=== PATIENT | male | born 1930 | race Caucasian/White ===

== ENCOUNTER 2016-11-15 12:42 | Inpatient (IN) | payer MEDICARE, OTHER ==
[~2016-11-15] VITALS: Ht 177.8 cm; Wt 84.7 kg
--- NOTE | 2016-11-15 12:53 | ERA ---
ER Documentation Chief Complaint Date/Time DATE: 11/15/16 TIME: 12:52 Chief Complaint sob started today HPI The patient is an 86-year-old male, presenting to the ER because of acute dyspnea, cough, nasal congestion, nasal discharge for the last couple days, worse today. He denies fever, chills, neck pain, chest pain, abdominal pain, vomiting, dysuria, diarrhea. He does not smoke or drink Past medical history: Diabetes mellitus, hypertension, dyslipidemia, CAD Past surgical history: CABG, ventral herniorrhaphy ROS All systems reviewed and are negative except as per history of present illness. Medications Home Meds Reported Medications Tiotropium [place]* (Spiriva*) 18 Mcg Cap.w.dev, 1 CAP INHALATION DAILY, #30 CAP 11/15/16 Atorvastatin* (Atorvastatin*) 80 Mg Tablet, 80 MG PO QHS, #30 TAB 11/15/16 Salmeterol Xinaf/Fluticasone* (Advair*) 250-50 Diskus Inhaler, 1 INH INHALATION BID, #1 INHALER 11/15/16 Montelukast Sodium* (Montelukast Sodium*) 10 Mg Tablet, 10 MG PO QHS, #30 TAB 11/15/16 Clopidogrel Bisulfate (Clopidogrel) 75 Mg Tablet, 75 MG PO DAILY, #30 TAB 11/15/16 Albuterol Sulfate* (Proair HFA*) 8.5 Gm Hfa.aer.ad, 2 PUFF INH Q4H Y for WHEEZING AND SOB, #1 INHALER 11/15/16 Clopidogrel Bisulfate (Clopidogrel) 75 Mg Tablet, 75 MG PO DAILY, #30 TAB 11/15/16 Carvedilol* (Carvedilol*) 3.125 Mg Tablet, 3.125 MG PO BID, #60 TAB 11/15/16 Tamsulosin Hcl* (Tamsulosin Hcl*) 0.4 Mg Cap.er.24h, 0.4 MG PO HS, CAP 11/15/16 Pantoprazole* (Pantoprazole*) 40 Mg Tablet.dr, 40 MG PO AC BREAKFAST, TAB 11/15/16 Losartan Potassium* (Losartan Potassium*) 50 Mg Tablet, 50 MG PO DAILY, TAB 11/15/16 Hydrochlorothiazide* (Hydrochlorothiazide*) 25 Mg Tab, 25 MG PO DAILY, #30 TAB 11/15/16 Allergies Allergies: Coded Allergies: aspirin (Verified Allergy, Severe, STOMACH ULCER, 11/15/16) Physical Exam Vitals Vital Signs Date Time Temp Pulse Resp B/P Pulse Ox O2 Delivery O2 Flow Rate FiO2 11/15/16 18:21 78 20 121/62 98 11/15/16 17:00 98.5 83 18 142/85 Mask 6.0 11/15/16 15:00 90 18 143/97 Mask 6.0 11/15/16 13:42 75 18 96 21 11/15/16 12:47 98.1 88 20 125/73 94 Physical Exam Const: No acute distress. Head: Atraumatic. Eyes: Normal Conjunctiva. ENT: Normal External Ears, Nose and Mouth. Neck: Full range of motion. No meningismus. Resp: Bilateral expiratory wheezes, bibasilar crackles Cardio: Regular rate and rhythm, no murmurs. Abd: Soft, non distended, normal bowel sounds, non tender. Skin: No petechiae or rashes. Back: No midline or flank tenderness. Ext: No cyanosis, or edema. Neur: Awake and alert. No focal deficit Psych: Normal Mood and Affect. Result Diagram: 11/15/16 1330 11/15/16 1330 Results 24 hrs Laboratory Tests Test 11/15/16 13:30 11/15/16 14:30 Activated Partial Thromboplast Time 32.8Sec Alanine Aminotransferase (ALT/SGPT) 29IU/L Albumin 3.3g/dl Albumin/Globulin Ratio 0.82 Alkaline Phosphatase 97IU/L Anion Gap 14 Aspartate Amino Transf (AST/SGOT) 23IU/L B-Type Natriuretic Peptide 4830PG/ML Basophils # 0.010^3/ul Basophils % 0.2% Blood Urea Nitrogen 22mg/dl Calcium Level 9.1mg/dl Carbon Dioxide Level 32mmol/L Chloride Level 103mmol/L Creatinine 1.08mg/dl Direct Bilirubin 0.00mg/dl Eosinophils # 0.110^3/ul Eosinophils % 0.4% Globulin 4.00g/dl Glucose Level 122mg/dl Hematocrit 40.5% Hemoglobin 12.2g/dl INR International Normalized Ratio 1.12 Indirect Bilirubin 0.8mg/dl Lymphocytes # 1.210^3/ul Lymphocytes % 8.3% Mean Corpuscular Hemoglobin 30.3pg Mean Corpuscular Hemoglobin Concent 30.1g/dl Mean Corpuscular Volume 100.5fl Mean Platelet Volume 10.8fl Monocytes # 1.410^3/ul Monocytes % 9.3% Neutrophils # 11.910^3/ul Neutrophils % 81.3% Nucleated Red Blood Cells # 0.010^3/ul Nucleated Red Blood Cells % 0.0/100WBC Platelet Count 03235^3/UL Potassium Level 5.0mmol/L Prothrombin Time 14.4Sec Prothrombin Time Ratio 1.1 Red Blood Count 4.0310^6/ul Red Cell Distribution Width 14.0% Sodium Level 144mmol/L Total Bilirubin 0.8mg/dl Total Protein 7.3g/dl Troponin I 0.017ng/ml White Blood Count 14.610^3/ul Lactic Acid Level 0.9mmol/L Current Medications Medications (Trade) Dose Ordered Sig/Kiana Route PRN Reason Start Time Stop Time Status Last Admin Dose Admin Levalbuterol (Xopenex Neb) 1.25 mg ONCE ONCE HHN 11/15/16 13:30 11/15/16 13:31 DC 11/15/16 13:41 Ipratropium [place] 0.5 mg 0.5 mg ONCE ONCE HHN 11/15/16 13:30 11/15/16 13:31 DC 11/15/16 13:41 Vancomycin HCl 250 ml @ 125 mls/hr ONCE IVPB 11/15/16 14:30 11/15/16 16:29 DC 11/15/16 16:15 Cefepime HCl (Maxipime 1gm/50 ml (Pmx)) 50 ml @ 100 mls/hr ONCE ONCE IVPB 11/15/16 14:30 11/15/16 14:59 DC 11/15/16 15:49 Furosemide (Lasix) 40 mg ONCE ONCE IV 11/15/16 15:00 11/15/16 15:01 DC 11/15/16 15:48 Procedures/MDM EKG: Read by emergency physician Rate/Rhythm: Normal Sinus Rhythm 79 beats/min QRS, ST, T-waves: No ST elevation, no T inversion, PAC, LVH, lateral ST and T abnormality Impression: Abnormal EKG [place] [id number] Radiology Main Line: [phone] DIAGNOSTIC IMAGING REPORT Patient: BEN HOWARD : 1930 Age: 86 Sex: M MR #: [id number] DOS: 11/15/16 1304 Ordering MD: HARESH NAQVI MD Location: E/R Room/Bed: PROCEDURE: CHEST 1VW CLINICAL INDICATION: Shortness of breath TECHNIQUE: Single frontal view of the chest was obtained COMPARISON: None. FINDINGS: Stable sternotomy wires and CABG clips. The cardiac size is moderately enlarged. Aortic vascular calcifications are demonstrated. There is no pulmonary vascular congestion. Minimal bronchial wall thickening is seen. There is a right lower lobe opacity. Mild degenerative changes of the visualized osseous structures are visualized. IMPRESSION: 1. Right lower lobe opacity may suggest pneumonia or aspiration. Minimal bronchial wall thickening may be sequela of bronchitis, asthma, or other nonspecific airway inflammation. 2. Atherosclerosis with moderate cardiomegaly. RPTAT:PP .Brendan Sims MD, MD Date Time Electronically viewed and signed by .Brendan Sims MD, MD on 11/15/2016 13:53 .V/ CC: HARESH NAQVI MD MEDICAL MAKING DECISION: The patient is a 86-year-old male, presenting with acute CHF, acute pneumonia. He was treated with Lasix 40 mg IV for acute CHF, Xopenex 125 mg, Atrovent 0.5, vancomycin IV, cefepime IV for acute pneumonia with good response. The differential diagnoses considered include but are not limited to asthma, COPD, pneumonia, pulmonary embolus, pleural effusion, congestive heart failure. Departure Diagnosis: Primary Impression: CHF (congestive heart failure) Additional Impressions: Pneumonia Anemia Condition: Stable Comments I discussed the findings with the patient. I discussed the patient with the on- call hospitalist Dr. Mac who was made aware of the lab, the treatment, the patient condition. The patient is admitted to telemetry at 2:45pm HARESH NAQVI MD Nov 15, 2016 12:53
[2016-11-15] MEDS ORDERED: LEVALBUTEROL (NEB) 1.25 MG/0.5 ML AMP HHN ONE (13:30)
[2016-11-15] MEDS ORDERED: IPRATROPIUM (NEB) 0.5 MG/2.5 ML AMP HHN ONE (13:30)
[2016-11-15 13:40] LABS: ADD SCAN DIFF NO
[2016-11-15 13:43] LABS: BASOPHILS % 0.2 % (0.0-2.0); EOSINOPHILS # 0.1 10^3/ul (0.0-0.5); EOSINOPHILS % 0.4 % (0.0-7.0); HEMATOCRIT 40.5 % (42.0-52.0); HEMOGLOBIN 12.2 g/dl (14.0-18.0); LYMPHOCYTES # 1.2 10^3/ul (0.8-2.9); LYMPHOCYTES % 8.3 % (15.0-51.0); MEAN CORPUSCULAR HEMOGLOBIN 30.3 pg (29.0-33.0); MEAN CORPUSCULAR HGB CONC 30.1 g/dl (32.0-37.0); MEAN CORPUSCULAR VOLUME 100.5 fl (82.0-101.0); MEAN PLATELET VOLUME 10.8 fl (7.4-10.4); MONOCYTE # 1.4 10^3/ul (0.3-0.9); MONOCYTES % 9.3 % (0.0-11.0); NEUTROPHIL # 11.9 10^3/ul (1.6-7.5); NEUTROPHILS % 81.3 % (39.0-77.0); PLATELET COUNT 195 10^3/UL (140-415); RED BLOOD COUNT 4.03 10^6/ul (4.70-6.10); WHITE BLOOD COUNT 14.6 10^3/ul (4.8-10.8)
--- NOTE | 2016-11-15 13:54 | RADRPT ---
PROCEDURE: CHEST 1VW CLINICAL INDICATION: Shortness of breath TECHNIQUE: Single frontal view of the chest was obtained COMPARISON: None. FINDINGS: Stable sternotomy wires and CABG clips. The cardiac size is moderately enlarged. Aortic vascular calcifications are demonstrated. There is no pulmonary vascular congestion. Minimal bronchial wall thickening is seen. There is a right lower lobe opacity. Mild degenerative changes of the visualized osseous structures are visualized. IMPRESSION: 1. Right lower lobe opacity may suggest pneumonia or aspiration. Minimal bronchial wall thickening m ay be sequela of bronchitis, asthma, or other nonspecific airway inflammation. 2. Atherosclerosis with moderate cardiomegaly. RPTAT:PP .Brendan Sims MD, MD Date Time Electronically viewed and signed by .Brendan Sims MD, on 11/15/2016 13:53 .V/
[2016-11-15 13:55] LABS: INR 1.12; PROTIME 14.4 Sec (12.2-14.2); PT RATIO 1.1
[2016-11-15 13:56] LABS: PARTIAL THROMBOPLASTIN TIME 32.8 Sec (25.0-35.0)
[2016-11-15 13:57] LABS: ALBUMIN 3.3 g/dl (3.3-4.9)
[2016-11-15 14:00] LABS: ALBUMIN/GLOBULIN RATIO 0.82; BILIRUBIN,INDIRECT 0.8 mg/dl (0-1.1); BILIRUBIN,TOTAL 0.8 mg/dl (0.2-1.3); CREATININE 1.08 mg/dl (0.61-1.24); TOTAL PROTEIN 7.3 g/dl (6.1-8.1)
[2016-11-15 14:01] LABS: CALCIUM 9.1 mg/dl (8.4-10.2)
[2016-11-15] MEDS ORDERED: PANT40TA4 PO (14:12)
[2016-11-15] MEDS ORDERED: HYD25 PO (14:12)
[2016-11-15] MEDS ORDERED: LOSA50TA6 PO (14:12)
[2016-11-15] MEDS ORDERED: TAMS0.4C2 PO (14:13)
[2016-11-15] MEDS ORDERED: CLOP75TA27 PO ×2 (14:13→14:14)
[2016-11-15] MEDS ORDERED: CARV3.1260 PO (14:13)
[2016-11-15] MEDS ORDERED: MONT10TA24 PO (14:14)
[2016-11-15] MEDS ORDERED: ALBU8.5H3 INH (14:14)
[2016-11-15] MEDS ORDERED: ADV25050 INHALATION (14:15)
[2016-11-15 14:16] LABS: TROPONIN-I 0.017 ng/ml (0.00-0.12)
[2016-11-15] MEDS ORDERED: TIOT18CA INHALATION (14:16)
[2016-11-15] MEDS ORDERED: ATOR80TA75 PO (14:16)
[2016-11-15] MEDS ORDERED: CEFEPIME 1GM/50 ML (PMX) 50 ML IVPB ONE (14:30)
[2016-11-15] MEDS ORDERED: VANCOMYCIN 1 GM (PMX) 250 ML IVPB SCH (14:30)
[2016-11-15] MEDS ORDERED: FUROSEMIDE 40 MG INJ IV ONE (15:00)
[2016-11-15 17:00] VITALS: TEMP 98.5
[2016-11-15 20:08] VITALS: BP 144/82; RESP 21
[2016-11-15 20:37] VITALS: PULSE 90
[2016-11-15 20:55] VITALS: Ht 177.8 cm; Wt 84.7 kg
[2016-11-15] MEDS ORDERED: ALBUTEROL/IPRATROPIUM (NEB) 3 ML AMP HHN PRN (21:30)
[2016-11-15] MEDS ORDERED: ACETAMINOPHEN 325 MG TAB PO PRN (21:30)
[2016-11-15] MEDS ORDERED: GUAIFENESIN/CODEINE 5ML CUP PO ONE (21:36)
[2016-11-15] MEDS ORDERED: ALBUTEROL/IPRATROPIUM (NEB) 3 ML AMP HHN ONE (21:37)
[2016-11-15] MEDS: SALMETEROL/FLUTICASONE 250/50 INHA INH SCH (22:19)
[2016-11-15] MEDS: TAMSULOSIN (SR) 0.4 MG CAP PO SCH (22:19)
[2016-11-15] MEDS: ATORVASTATIN 80 MG TAB PO SCH (22:20)
[2016-11-15] MEDS: MONTELUKAST 10 MG TAB PO SCH (22:20)
[2016-11-16] VITALS (12 sets, daily range): BP systolic 114–150; BP diastolic 55–79; PULSE 78–89; RESP 18–22
[2016-11-16] MEDS: PANTOPRAZOLE (EC) 40 MG TAB PO SCH (06:38)
[2016-11-16] MEDS ORDERED: METHYLPREDNISOLONE 125 MG INJ IV ONE (07:00)
--- NOTE | 2016-11-16 08:13 | HP ---
DATE OF ADMISSION: 11/15/2016 CHIEF COMPLAINT: Shortness of breath and cough. HISTORY OF PRESENT ILLNESS: The patient is an 86-year-old male with a history of diabetes, hyperten margarita, dyslipidemia, coronary artery disease, asthma, BPH, asthma/COPD, and atrial fibrillation, who was brought to [facility] for shortness of breath and cough. The symptoms have be en going on for a few days now, and his cough is described as productive of white sputum. He also r eported a runny nose and nasal congestion. The symptoms acutely worsened today. Denied any fever, chills, nausea, vomiting, abdominal pain. When he presented to the ER his vitals were stable. LABORATORY: Laboratory values show a WBC of 14.6, hemoglobin 12.2, bicarbonate 32, BUN 22. Otherwi se CBC and CMP are within normal limits. BNP is almost 5000. His first troponin was negative. Chest x-ray shows a right lower lobe opacity suggestive of pneumonia or aspiration. Also, minimal b ronchial wall thickening, sequela of bronchitis, asthma, or other nonspecific airway inflammation wa s noted on the chest x-ray along with moderate cardiomegaly. Patient received breathing treatments as well as was given vancomycin, cefepime, and Lasix while he was in the ER. was performed and negative except as mentioned in the HPI. PAST MEDICAL HISTORY: As per HPI. PAST SURGICAL HISTORY: He had an open heart surgery. SOCIAL HISTORY: No reported tobacco, alcohol, or illicit drug use. ALLERGIES: 1. ASPIRIN. 2. PENICILLIN. HOME MEDICATIONS: 1. Albuterol. 2. Tamsulosin. 3. Spiriva. 4. Plavix. 5. Lipitor. 6. Coreg. 7. Losartan. 8. Hydrochlorothiazide. 9. Montelukast. 10. Advair. 11. Protonix. PHYSICAL EXAMINATION VITAL SIGNS: Stable. GENERAL: Elderly male lying in bed with no acute distress. No acute distress. Slightly sleepy, bu t was arousable. HEENT: No obvious head deformity. Pupils are reactive to light. CARDIOVASCULAR: Regular rate and rhythm. No extra sounds. LUNGS: He has decreased breath sounds at the bases with minimal scattered wheezing. ABDOMEN: Soft, nontender, nondistended. Positive bowel sounds. EXTREMITIES: No edema. LABORATORY: Pertinent positives as mentioned in HPI. IMAGING: Chest x-ray with results as mentioned in the HPI. IMPRESSION: 1. Right lower lobe community-acquired pneumonia. 2. Chronic obstructive pulmonary disease/asthma exacerbation. 3. Leukocytosis. 4. Sepsis, as evidenced by leukocytosis and tachypnea, secondary to pneumonia. 6. History of coronary artery disease. 7. History of diabetes. 8. History of dyslipidemia. 9. History of hypertension, blood pressure within goal. 10. History of atrial fibrillation. PLAN: The patient's symptom of shortness of breath and productive cough along with his chest x-ray finding is diagnostic of pneumonia. He will be placed on antibiotics. We will follow up on culture results. We will attempt to send sputum for Gram stain and culture. He will be continued with his home medication, with adjustment as needed. He will receive bronchodilators and oxygen as needed. He will also receive steroids as needed for exacerbation of her reactive airway disease. Further workup and management per clinical course. Dictated By: EDILIA MÉNDEZ/OSKAR Conf#: [id number] DID#: [id number]
[2016-11-16] MEDS: SALMETEROL/FLUTICASONE 250/50 INHA INH SCH ×2 (08:17→20:51)
[2016-11-16] MEDS: LEVOFLOXACIN 500MG/D5W (PMX) 100 ML IVPB SCH (08:17)
[2016-11-16] MEDS: TIOTROPIUM 18 MCG CAPSULE INHA DEV INH SCH (08:18)
[2016-11-16] MEDS: HYDROCHLOROTHIAZIDE 25 MG TAB PO SCH (08:19)
[2016-11-16] MEDS: LOSARTAN 50 MG TAB PO SCH (08:19)
[2016-11-16] MEDS: CLOPIDOGREL 75 MG TAB PO SCH (08:19)
[2016-11-16 09:28] LABS: ADD SCAN DIFF NO
[2016-11-16 09:39] LABS: ALBUMIN 3.3 g/dl (3.3-4.9)
[2016-11-16 09:41] LABS: BASOPHILS % 0.2 % (0.0-2.0); CREATININE 1.06 mg/dl (0.61-1.24); EOSINOPHILS # 0.1 10^3/ul (0.0-0.5); EOSINOPHILS % 0.5 % (0.0-7.0); HEMATOCRIT 37.7 % (42.0-52.0); HEMOGLOBIN 11.5 g/dl (14.0-18.0); LYMPHOCYTES # 1.1 10^3/ul (0.8-2.9); LYMPHOCYTES % 8.1 % (15.0-51.0); MEAN CORPUSCULAR HEMOGLOBIN 30.4 pg (29.0-33.0); MEAN CORPUSCULAR HGB CONC 30.5 g/dl (32.0-37.0); MEAN CORPUSCULAR VOLUME 99.7 fl (82.0-101.0); MEAN PLATELET VOLUME 11.2 fl (7.4-10.4); MONOCYTE # 1.1 10^3/ul (0.3-0.9); MONOCYTES % 7.7 % (0.0-11.0); NEUTROPHIL # 11.4 10^3/ul (1.6-7.5); NEUTROPHILS % 83.1 % (39.0-77.0); PLATELET COUNT 168 10^3/UL (140-415); RED BLOOD COUNT 3.78 10^6/ul (4.70-6.10); WHITE BLOOD COUNT 13.7 10^3/ul (4.8-10.8)
[2016-11-16 09:42] LABS: ALBUMIN/GLOBULIN RATIO 0.91; BILIRUBIN,INDIRECT 0.8 mg/dl (0-1.1); BILIRUBIN,TOTAL 0.8 mg/dl (0.2-1.3); CALCIUM 8.5 mg/dl (8.4-10.2); TOTAL PROTEIN 6.9 g/dl (6.1-8.1)
[2016-11-16 09:43] LABS: CHOL/HDL RATIO 2.5 RATIO
[2016-11-16] MEDS ORDERED: VANCOMYCIN IV PER PHARMACY XX SCH (10:30)
[2016-11-16] MEDS ORDERED: FUROSEMIDE 20 MG INJ IV ONE (10:30)
--- NOTE | 2016-11-16 10:34 | PN ---
Date/Time of Note Date/Time of Note DATE: 11/16/16 TIME: 10:29 Assessment/Plan VTE Prophylaxis VTE Prophylaxis Intervention: LMWH Lines/Catheters IV [facility] [place] Assessment/Plan Assessment/Plan 1. Right lower lobe community-acquired pneumonia. 2. Chronic obstructive pulmonary disease/asthma exacerbation. 3. Leukocytosis. 4. Sepsis,as evidenced by leukocytosis and tachypnea, secondary to pneumonia. possible due to bacteremia 6. History of coronary artery disease. 7. History of diabetes. 8. History of dyslipidemia. 9. History of hypertension, blood pressure within goal. 10. History of atrial fibrillation. 11. Bacteremia with blood cx growing gram postive cocci in chains and clusters Plan: IV abx levaquin, blood cx grew gram positive cocci in clusters and chains, will add IV vancomycin repeat blood cx , UA Urine cx WBC still high, pt has signficant crackles on lung exam, will give lasix 20mg IV x 1 now, DUoneb ATC, Physical therapy and evaluation lovenox for DVT prophylaxis will follow up Subjective 24 Hr Interval Summary Free Text/Dictation c/o SOB, crackles on lung exam, blood cx grew gram positive coccil in clusters and chains Exam/Review of Systems Vital Signs Vitals Vital Signs Date Time Temp Pulse Resp B/P Pulse Ox O2 Delivery O2 Flow Rate FiO2 11/16/16 10:12 Nasal Cannula 2.0 11/16/16 08:12 78 11/16/16 06:58 98.2 18 150/65 98 11/15/16 21:55 21 Intake and Output 11/15/16 11/15/16 11/16/16 15:00 23:00 07:00 Intake Total 300 ml Output Total 550 ml 1400 ml Balance -550 ml -1400 ml 300 ml Exam GENERAL: Elderly male lying in bed with no acute distress. No acute distress. Slightly sleepy, but was arousable. HEENT: No obvious head deformity. Pupils are reactive to light. CARDIOVASCULAR: Regular rate and rhythm. No extra sounds. LUNGS: He has decreased breath sounds at the bases with minimal scattered wheezing. ABDOMEN: Soft, nontender, nondistended. Positive bowel sounds. EXTREMITIES: No edema. Results Result Diagram: 11/16/16 0855 11/16/16 0855 Results 24 hrs Laboratory Tests Test 11/15/16 13:30 11/15/16 14:30 11/15/16 20:35 11/15/16 22:45 Activated Partial Thromboplast Time 32.8 Alanine Aminotransferase (ALT/SGPT) 29 Albumin 3.3 Albumin/Globulin Ratio 0.82 Alkaline Phosphatase 97 Anion Gap 14 Aspartate Amino Transf (AST/SGOT) 23 B-Type Natriuretic Peptide 4830 H Basophils # 0.0 Basophils % 0.2 Blood Urea Nitrogen 22 H Calcium Level 9.1 Carbon Dioxide Level 32 H Chloride Level 103 Creatinine 1.08 Direct Bilirubin 0.00 Eosinophils # 0.1 Eosinophils % 0.4 Globulin 4.00 H Glucose Level 122 Hematocrit 40.5 L Hemoglobin 12.2 L INR International Normalized Ratio 1.12 Indirect Bilirubin 0.8 Lymphocytes # 1.2 Lymphocytes % 8.3 L Mean Corpuscular Hemoglobin 30.3 Mean Corpuscular Hemoglobin Concent 30.1 L Mean Corpuscular Volume 100.5 Mean Platelet Volume 10.8 H Monocytes # 1.4 H Monocytes % 9.3 Neutrophils # 11.9 H Neutrophils % 81.3 H Nucleated Red Blood Cells # 0.0 Nucleated Red Blood Cells % 0.0 Platelet Count 195 Potassium Level 5.0 Prothrombin Time 14.4 H Prothrombin Time Ratio 1.1 Red Blood Count 4.03 L Red Cell Distribution Width 14.0 Sodium Level 144 Total Bilirubin 0.8 Total Protein 7.3 Troponin I 0.017 White Blood Count 14.6 H Lactic Acid Level 0.9 1.6 1.9 Test 11/16/16 08:55 Alanine Aminotransferase (ALT/SGPT) 28 Albumin 3.3 Albumin/Globulin Ratio 0.91 Alkaline Phosphatase 97 Anion Gap 13 Aspartate Amino Transf (AST/SGOT) 20 Basophils # 0.0 Basophils % 0.2 Blood Urea Nitrogen 23 H Calcium Level 8.5 Carbon Dioxide Level 33 H Chloride Level 99 Cholesterol Level 104 Cholesterol/HDL Ratio 2.5 Creatinine 1.06 Direct Bilirubin 0.00 Eosinophils # 0.1 Eosinophils % 0.5 Globulin 3.60 H Glucose Level 194 HDL Cholesterol 41 Hematocrit 37.7 L Hemoglobin 11.5 L Hemoglobin A1c 6.9 H Indirect Bilirubin 0.8 LDL Cholesterol, Calculated 48 Lymphocytes # 1.1 Lymphocytes % 8.1 L Mean Corpuscular Hemoglobin 30.4 Mean Corpuscular Hemoglobin Concent 30.5 L Mean Corpuscular Volume 99.7 Mean Platelet Volume 11.2 H Monocytes # 1.1 H Monocytes % 7.7 Neutrophils # 11.4 H Neutrophils % 83.1 H Nucleated Red Blood Cells # 0.0 Nucleated Red Blood Cells % 0.0 Platelet Count 168 Potassium Level 4.0 Red Blood Count 3.78 L Red Cell Distribution Width 14.0 Sodium Level 141 Total Bilirubin 0.8 Total Protein 6.9 Triglycerides Level 76 White Blood Count 13.7 H Medications Medications Current Medications Atorvastatin Calcium (Lipitor) 80 mg QHS PO Last administered on 11/15/16 22: 20; Admin Dose 80 MG; Start 11/15/16 at 22:00 Carvedilol (Coreg) 3.125 mg BID PO Last administered on 11/16/16 08:19; Admin Dose 3.125 MG; Start 11/15/16 at 22:00 Clopidogrel Bisulfate (plaVIX) 75 mg DAILY PO Last administered on 11/16/16 08: 19; Admin Dose 75 MG; Start 11/16/16 at 09:00 Hydrochlorothiazide (Hydrochlorothiazide) 25 mg DAILY PO Last administered on 08:19; Admin Dose 25 MG; Start 11/16/16 at 09:00 Losartan Potassium (Cozaar) 50 mg DAILY PO Last administered on 11/16/16 08:19 ; Admin Dose 50 MG; Start 11/16/16 at 09:00 Montelukast Sodium (Singulair) 10 mg QHS PO Last administered on 11/15/16 22: 20; Admin Dose 10 MG; Start 11/15/16 at 22:00 Salmeterol Xinafoate/ Fluticasone (Advair 250/50 Diskus) 1 inh BID INH Last administered on 11/16/16 08:17; Admin Dose 1 INH; Start 11/15/16 at 22:30 Tamsulosin HCl (Flomax) 0.4 mg HS PO Last administered on 11/15/16 22:19; Admin Dose 0.4 MG; Start 11/15/16 at 22:00 Tiotropium [place] (Spiriva) 1 inh DAILY INH Last administered on 11/16/16 08: 18; Admin Dose 1 INH; Start 11/16/16 at 09:00 Acetaminophen 650 mg 650 mg Q6H PRN PO PAIN AND OR ELEVATED TEMP; Start at 21:30 Levofloxacin/ Dextrose (Levaquin 500mg/ D5W 100 ml (Pmx)) 100 ml @ 100 mls/hr Q24H IVPB Last administered on 11/16/16t 08:17; Admin Dose 100 MLS/HR; Start 11/16/16 at 07:00 CRUZ ABRAHAM MD Nov 16, 2016 10:34
[2016-11-16] MEDS: METHYLPREDNISOLONE 40 MG INJ IV SCH ×2 (11:16→20:51)
[2016-11-16] MEDS: ENOXAPARIN 40 MG/0.4 ML SYG SC SCH (11:24)
--- NOTE | 2016-11-16 11:31 | RADRPT ---
Echocardiogram Report Patient Name: BEN HOWARD Gender: Male Date: 1930 Study Date: 16-Nov-2016 Sheet Metal Operator: Gregory Rocha [facility] [place] [facility] Physician: EDILIA WILKINSON Quality: Technically Difficult Study Procedures: Transthoracic echocardiogram with complete 2D, M-Mode, and doppler examination. Indications: Congestive Heart Failure. 2D/M Mode Doppler Measurement Value Normal Ranges Measurement Value Normal Ranges LVIDd 2D 5.7 3.5 - 5.6 cm AV Peak Mike 1.2 m/sec LVIDs 2D 4.0 2.1 - 4.1 cm AV Peak PG 5.9 mmHg LVPWd 2D 0.8 0.6 - 1.1 cm LVOT Peak Mike 0.9 m/sec IVSd 2D 1.2 0.6 - 1.1 cm LVOT Peak PG 2.9 mmHg AoR Diam 2D 3.8 2.0 - 3.7 cm MV E Peak Mike 0.5 m/sec EDV 2D 160.2 cm3 MV A Peak Mike 0.8 m/sec ESV 2D 62.7 cm3 MV E/A 0.7 LA Dimen 2D 5.0 2.3 - 4.0 cm MV Decel Time 189 msec MV Decel [place] 3 MV E/A 0.7 Findings Left Ventricle: Normal left ventricular cavity size. Mild asymmetric septal hypertrophy. Mild global left ventricular systolic dysfunction. Ejection fraction is visually estimated at 45 %. Tissue Doppler/Mitral Doppler indices are consistent with impaired relaxation (Stage I diastolic dysfunction). Right Ventricle: Normal right ventricular size. Normal right ventricular systolic function. Left Atrium: There is moderate enlargement of left atrium. Right Atrium: The right atrium is normal in size. Mitral Valve: Mitral valve leaflets appear mildly thickened. Mild mitral annular calcification. Mild mitral valve regurgitation. Aortic Valve: No hemodynamically significant aortic stenosis by doppler. Aortic cusps appear mildly calcified. Trace aortic valve regurgitation. Tricuspid Valve: Normal appearance and function of the tricuspid valve with trace physiologic regurgitation. Pulmonic Valve: Normal pulmonic valve appearance. Pericardium: Normal pericardium with no significant pericardial effusion. Aorta: Normal aortic root. IVC: Dilated IVC with respiratory collapse consistent with elevated right atrial pressure. Conclusions 1.Normal left ventricular cavity size. Mild asymmetric septal hypertrophy. Mild global left ventricular systolic dysfunction. Ejection fraction is visually estimated at 45 %. Tissue Doppler/Mitral Doppler indices are consistent with impaired relaxation (Stage I diastolic dysfunction). 2.Normal right ventricular size. Normal right ventricular systolic function. 3.There is moderate enlargement of left atrium. 4.The right atrium is normal in size. 5.Mild mitral valve regurgitation. 6.No hemodynamically significant aortic stenosis by doppler. Trace aortic valve regurgitation. 7.Normal pericardium with no significant pericardial effusion. Electronically Signed By: Jeevan Rosas 16-Nov-2016 11:30:43 -0800 Patient Name: BEN HOWARD Study Date: 16-Nov-[id number]
[2016-11-16 12:58] LABS: ADD UMIC YES; URINE BILIRUBIN (Dip) NEGATIVE (NEGATIVE); URINE BLOOD (Dip) NEGATIVE (NEGATIVE); URINE COLOR LT. YELLOW (YELLOW); URINE GLUCOSE (Dip) NEGATIVE (NEGATIVE); URINE KETONES (Dip) NEGATIVE (NEGATIVE); URINE LEUKOCYTE ESTERASE (Dip) NEGATIVE (NEGATIVE); URINE NITRITE (Dip) NEGATIVE (NEGATIVE); URINE TOTAL PROTEIN (Dip) TRACE (NEGATIVE); URINE UROBILINOGEN (Dip) 0.2 E.U./dL (0.1-1.0)
[2016-11-16] MEDS ORDERED: VANCOMYCIN 1.5 GM in SOD CHLORIDE 0.9% 250 ML IVPB SCH (13:00)
[2016-11-16 13:20] LABS: URINE RBCS 0-2 /HPF (0)
[2016-11-16] MEDS: ALBUTEROL/IPRATROPIUM (NEB) 3 ML AMP HHN SCH ×2 (16:04→23:13)
[2016-11-16] MEDS: ATORVASTATIN 80 MG TAB PO SCH (20:51)
[2016-11-16] MEDS: TAMSULOSIN (SR) 0.4 MG CAP PO SCH (20:51)
[2016-11-16] MEDS: MONTELUKAST 10 MG TAB PO SCH (20:51)
[2016-11-17] VITALS (14 sets, daily range): BP systolic 122–158; BP diastolic 72–80; PULSE 75–101; RESP 16–22
[2016-11-17] MEDS: PANTOPRAZOLE (EC) 40 MG TAB PO SCH (06:13)
[2016-11-17] MEDS: LEVOFLOXACIN 500MG/D5W (PMX) 100 ML IVPB SCH (06:13)
[2016-11-17] MEDS: METHYLPREDNISOLONE 40 MG INJ IV SCH ×2 (08:08→20:50)
[2016-11-17] MEDS: ENOXAPARIN 40 MG/0.4 ML SYG SC SCH (08:08)
[2016-11-17] MEDS: TIOTROPIUM 18 MCG CAPSULE INHA DEV INH SCH (08:08)
[2016-11-17] MEDS: CLOPIDOGREL 75 MG TAB PO SCH (08:08)
[2016-11-17] MEDS: LOSARTAN 50 MG TAB PO SCH (08:09)
[2016-11-17] MEDS: SALMETEROL/FLUTICASONE 250/50 INHA INH SCH ×2 (08:09→20:50)
[2016-11-17] MEDS: HYDROCHLOROTHIAZIDE 25 MG TAB PO SCH (08:09)
[2016-11-17 08:10] LABS: ADD SCAN DIFF NO
[2016-11-17 08:21] LABS: BASOPHILS % 0.1 % (0.0-2.0); HEMATOCRIT 42.3 % (42.0-52.0); HEMOGLOBIN 13.3 g/dl (14.0-18.0); LYMPHOCYTES % 8.6 % (15.0-51.0); MEAN CORPUSCULAR HEMOGLOBIN 30.8 pg (29.0-33.0); MEAN CORPUSCULAR HGB CONC 31.4 g/dl (32.0-37.0); MEAN CORPUSCULAR VOLUME 97.9 fl (82.0-101.0); MEAN PLATELET VOLUME 11.3 fl (7.4-10.4); MONOCYTE # 0.5 10^3/ul (0.3-0.9); MONOCYTES % 4.5 % (0.0-11.0); NEUTROPHIL # 9.7 10^3/ul (1.6-7.5); NEUTROPHILS % 86.4 % (39.0-77.0); PLATELET COUNT 203 10^3/UL (140-415); RED BLOOD COUNT 4.32 10^6/ul (4.70-6.10); RED CELL DISTRIBUTION WIDTH 13.7 % (11.5-14.5); WHITE BLOOD COUNT 11.2 10^3/ul (4.8-10.8)
[2016-11-17 08:36] LABS: ALBUMIN 3.8 g/dl (3.3-4.9); INR 1.03; POTASSIUM 4.2 mmol/L (3.5-5.1); PROTIME 13.5 Sec (12.2-14.2); PT RATIO 1.1
[2016-11-17 08:37] LABS: PARTIAL THROMBOPLASTIN TIME 38.7 Sec (25.0-35.0)
[2016-11-17 08:39] LABS: ALBUMIN/GLOBULIN RATIO 0.9; BILIRUBIN,INDIRECT 0.3 mg/dl (0-1.1); BILIRUBIN,TOTAL 0.3 mg/dl (0.2-1.3); CALCIUM 9.5 mg/dl (8.4-10.2); CREATININE 1.26 mg/dl (0.61-1.24)
[2016-11-17] MEDS: ALBUTEROL/IPRATROPIUM (NEB) 3 ML AMP HHN SCH ×3 (08:46→23:24)
[2016-11-17 08:47] LABS: PHOSPHORUS 3.8 mg/dl (2.5-4.9)
[2016-11-17 08:48] LABS: MAGNESIUM 2.2 mg/dl (1.7-2.5)
--- NOTE | 2016-11-17 11:27 | PN ---
Date/Time of Note Date/Time of Note DATE: 11/17/16 TIME: 11:09 Assessment/Plan VTE Prophylaxis VTE Prophylaxis Intervention: SCD's Lines/Catheters IV Catheter Type (from [facility]): Saline Lock Urinary Cath still in place: No Assessment/Plan Chief Complaint/Hosp Course IMPRESSION: 1. Right lower lobe community-acquired pneumonia. Continue vancomycin and Levaquin 2. Chronic obstructive pulmonary disease/asthma exacerbation. Continue Solu-Medrol, breathing treatment 3. Sepsis, secondary to pneumonia.Leukocytosis. Secondary to #1, continue IV antibiotics 4. History of atrial fibrillation. Cardiology has been consulted, continue medical management 6. History of coronary artery disease. Continue aspirin, Plavix, 7. History of diabetes. 8. History of dyslipidemia. 9. History of hypertension, blood pressure within goal. 10. Acute on chronic renal insufficiency Nephrology has been consulted, caution with nephrotoxic medication Further workup and management per clinical course. Problems: Subjective 24 Hr Interval Summary Free Text/Dictation Patient continues to have cough and congestion Denies any chest pain Tolerating oral intake Exam/Review of Systems Vital Signs Vitals Vital Signs Date Time Temp Pulse Resp B/P Pulse Ox O2 Delivery O2 Flow Rate FiO2 11/17/16 09:02 Nasal Cannula 3.0 11/17/16 08:48 86 20 95 11/17/16 07:54 98.0 122/76 11/16/16 16:05 21 Intake and Output 11/16/16 11/16/16 11/17/16 15:00 23:00 07:00 Intake Total 1000 ml 350 ml Output Total 1210 ml Balance -210 ml 350 ml Exam General: The patient is well-developed, Not in acute distress. HEENT: Atraumatic, normocephalic. The pupils are equal and round . Neck: Supple with full range of motion. Chest: Normal expansion of the thorax during inspiration Lungs: Clear to auscultation bilaterally Heart: Normal S1-S2, Regular rhythm and rate. Abdomen: Soft , nontender, nondistended , bowel sounds are present. Extremities: Normal to inspection, no edema no cyanosis Neurologic: Normal mental status,The patient is awake, alert and oriented . Results Result Diagram: 11/17/16 0710 11/17/16 0710 Results 24 hrs Laboratory Tests Test 11/16/16 12:50 11/17/16 07:10 Urine Bilirubin NEGATIVE Urine Clarity CLEAR Urine Color LT. YELLOW Urine Glucose NEGATIVE Urine Hemoglobin NEGATIVE Urine Ketones NEGATIVE Urine Leukocyte Esterase NEGATIVE Urine Microscopic RBC 0-2 Urine Microscopic WBC 0-2 Urine Nitrite NEGATIVE Urine Specific [place] 1.015 Urine Total Protein TRACE Urine Urobilinogen 0.2 E.U./dL Urine pH 6.0 Activated Partial Thromboplast Time 38.7 H Alanine Aminotransferase (ALT/SGPT) 23 Albumin 3.8 Albumin/Globulin Ratio 0.90 Alkaline Phosphatase 102 Anion Gap 16 Aspartate Amino Transf (AST/SGOT) 24 Basophils # 0.0 Basophils % 0.1 Blood Urea Nitrogen 37 #H Calcium Level 9.5 Carbon Dioxide Level 33 H Chloride Level 97 Creatinine 1.26 H Direct Bilirubin 0.00 Eosinophils # 0.0 Eosinophils % 0.0 Globulin 4.20 H Glucose Level 201 Hematocrit 42.3 Hemoglobin 13.3 L INR International Normalized Ratio 1.03 Indirect Bilirubin 0.3 Lymphocytes # 1.0 Lymphocytes % 8.6 L Magnesium Level 2.2 Mean Corpuscular Hemoglobin 30.8 Mean Corpuscular Hemoglobin Concent 31.4 L Mean Corpuscular Volume 97.9 Mean Platelet Volume 11.3 H Monocytes # 0.5 Monocytes % 4.5 Neutrophils # 9.7 H Neutrophils % 86.4 H Nucleated Red Blood Cells # 0.0 Nucleated Red Blood Cells % 0.0 Phosphorus Level 3.8 Platelet Count 203 # Potassium Level 4.2 Prothrombin Time 13.5 Prothrombin Time Ratio 1.1 Red Blood Count 4.32 L Red Cell Distribution Width 13.7 Sodium Level 142 Total Bilirubin 0.3 Total Protein 8.0 # White Blood Count 11.2 H Medications Medications Current Medications Atorvastatin Calcium (Lipitor) 80 mg QHS PO Last administered on 11/16/16 20:51 ; Admin Dose 80 MG; Start 11/15/16 at 22:00 Carvedilol (Coreg) 3.125 mg BID PO Last administered on 11/17/16 08:09; Admin Dose 3.125 MG; Start 11/15/16 at 22:00 Clopidogrel Bisulfate (plaVIX) 75 mg DAILY PO Last administered on 11/17/16 08: 08; Admin Dose 75 MG; Start 11/16/16 at 09:00 Hydrochlorothiazide (Hydrochlorothiazide) 25 mg DAILY PO Last administered on 08:09; Admin Dose 25 MG; Start 11/16/16 at 09:00 Losartan Potassium (Cozaar) 50 mg DAILY PO Last administered on 11/17/16 08:09 ; Admin Dose 50 MG; Start 11/16/16 at 09:00 Montelukast Sodium (Singulair) 10 mg QHS PO Last administered on 11/16/16 20:51 ; Admin Dose 10 MG; Start 11/15/16 at 22:00 Salmeterol Xinafoate/ Fluticasone (Advair 250/50 Diskus) 1 inh BID INH Last administered on 11/17/16 08:09; Admin Dose 1 INH; Start 11/15/16 at 22:30 Tamsulosin HCl (Flomax) 0.4 mg HS PO Last administered on 11/16/16 20:51; Admin Dose 0.4 MG; Start 11/15/16 at 22:00 Tiotropium [place] (Spiriva) 1 inh DAILY INH Last administered on 11/17/16 08: 08; Admin Dose 1 INH; Start 11/16/16 at 09:00 Acetaminophen 650 mg 650 mg Q6H PRN PO PAIN AND OR ELEVATED TEMP; Start at 21:30 Levofloxacin/ Dextrose (Levaquin 500mg/ D5W 100 ml (Pmx)) 100 ml @ 100 mls/hr Q24H IVPB Last administered on 11/17/16 06:13; Admin Dose 100 MLS/HR; Start 11/16/16 at 07:00 Methylprednisolone Sodium Succinate (Solu-Medrol) 40 mg BID IV Last administered on 11/17/16 08:08; Admin Dose 40 MG; Start 11/16/16 at 10:30 Enoxaparin Sodium 40 mg 40 mg DAILY SC Last administered on 11/17/16 08:08; Admin Dose 40 MG; Start 11/16/16 at 11:00 Vancomycin HCl/ Sodium Chloride (Vancocin/NS) 250 ml @ 83.333 mls/ hr Q24H IVPB ; Start 11/17/16 at 13:00 LESLIE JORDAN MD Nov 17, 2016 11:19
--- NOTE | 2016-11-17 11:53 | PREOPHP ---
DATE OF ADMISSION: 11/15/2016 Thank you, Dr. Dolan, for asking me to participate in the medical management of this patient. REASON FOR CONSULTATION: Acute renal failure. HISTORY OF PRESENT ILLNESS: This 86-year-old man was admitted through the emergency room because of shortness of breath. The patient had a cough and it was productive of some white sputum. A chest x-ray done in the emergency room did show a right lower lobe infiltrate which was thought to be cons istent with pneumonia. Since admission, the patient's serum creatinine has increased. His initial serum creatinine was 1.08 and then today is up to 1.26 with an elevated BUN of 37. The patient on h is input and output did have a negative fluid balance with increased urine output yesterday. He has not had prior history of kidney disease, according to his chart and according to him. MEDICATIONS: The patient is on the following medications: 1. Vancomycin. 2. DuoNeb respiratory therapy. 3. Enoxaparin sodium 40 mg subq daily. 4. Methylprednisolone 40 mg twice a day. 5. Plavix 75 mg a day. 6. Hydrochlorothiazide 25 mg a day. 7. Losartan 50 mg a day. 8. Spiriva 1 puff daily. 9. Pantoprazole 40 mg a day. 10. Levothyroxine IV daily. 11. Atorvastatin 80 mg a day. 12. Carvedilol 3.125 twice a day. 13. Singulair 10 mg a day. 14. Tamsulosin 0.4 mg at bedtime. 15. Tylenol p.r.n. pain. PAST MEDICAL HISTORY: Remarkable for diabetes mellitus, hypertension, hyperlipidemia, coronary bertha ry disease, asthma/COPD, benign prostatic hypertrophy and atrial fibrillation. PAST SURGICAL HISTORY: Open heart surgery, presumed coronary artery bypass grafting. SOCIAL HISTORY: The patient does not smoke, drink alcohol or use illicit drugs. ALLERGIES: ASPIRIN AND PENICILLIN. PHYSICAL EXAMINATION: GENERAL: At this time reveals a well-developed man in no apparent distress. VITAL SIGNS: Temperature 98, respirations 18, blood pressure 122/76, O2 saturation 98% on 3 liter n [place] cannula. HEENT: Head normocephalic. EYES: Extraocular muscles intact. NOSE AND MOUTH: Normal. NECK: Supple. No neck vein distention. LUNGS: Clear to auscultation. HEART: Regular rhythm. No murmurs, gallops or rubs. ABDOMEN: Soft, nontender, no masses or megaly. EXTREMITIES: No peripheral edema. IMPRESSION: Acute renal failure. The patient has had a rise in his BUN and serum creatinine since admission. He was in negative fluid balance yesterday and is on a diuretic and an angiotensin rece ptor asad. These could contribute to a rise in his serum creatinine. He has no history of prior kidney disease. His urinalysis does show a trace of protein. I will do a urine protein creatinine ratio and a renal ultrasound to further evaluate his kidney dysfunction. At this time, I will adju st some of his medications. Otherwise, continue current diuretics and angiotensin receptor asad. PLAN: 1. Renal ultrasound, urine protein creatinine ratio. 2. Decrease Lovenox because of renal failure. 3. Continue current medications. If his serum creatinine continues to rise, then I will consider d iscontinuing the hydrochlorothiazide and angiotensin receptor asad. 4. I will follow the patient along with you. Dictated By: RADHA VALENCIA MD, ND/OSKAR Conf#: [id number] DID#: [id number]
[2016-11-17] MEDS: VANCOMYCIN 1.25 GM in SOD CHLORIDE 0.9% 250 ML IVPB SCH (12:05)
--- NOTE | 2016-11-17 13:22 | CONS ---
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 Patient with mild decompensated congestive heart failure but clinically symptoms have improved. He is on hydrochlorothiazide. Given patient clinically improving, would continue. If any increase edema, would stop hydrochlorothiazide and switch to Lasix. Would continue ARB as long as renal function and blood pressure permits as well as Coreg. Continue antiplatelet therapy and statin. Consultation Date/Type/Reason Admit Date/Time Nov 15, 2016 at 14:45 Type of Consultation: cv Reason for Consultation Shortness of breath Hx of Present Illness This is an 86-year-old male with history of coronary artery disease with CABG many years ago, hypertension, dyslipidemia who presents with fevers and chills, cough and shortness of breath progressing over the past 4-5 days. Since admission, if symptoms have improved. Shortness of breath is worse with exertion and improved at rest but happens intermittently at rest as well. His cough has been productive for phlegm and has improved since admission. He does complain of mild paroxysmal nocturnal dyspnea but this is improved since admission. He does have lower extremity swelling which is slightly worse than usual but has since improved. He denies any exertional chest pain, dizziness or lightheadedness. 12 point review of systems was performed with all pertinent positives and negatives mentioned above and all else is negative Past Medical History Medical History: congestive heart failure, coronary artery disease, high cholesterol, hypertension Past Surgical History Past Surgical Hx: coronary bypass surgery Family History Significant Family History: no pertinent family hx Social History Smoking Status: Never smoker Other Social History Lives at home Exam/Review of Systems Vital Signs Vitals Vital Signs Date Time Temp Pulse Resp B/P Pulse Ox O2 Delivery O2 Flow Rate FiO2 11/17/16 12:00 85 11/17/16 11:56 98.0 18 136/77 98 11/17/16 09:02 Nasal Cannula 3.0 11/16/16 16:05 21 Intake and Output 11/16/16 11/16/16 11/17/16 15:00 23:00 07:00 Intake Total 1000 ml 350 ml Output Total 1210 ml Balance -210 ml 350 ml Exam No apparent distress, sitting up eating lunch Constitutional: alert, obese, oriented Head: normocephalic Neck: supple Respiratory: other (Coarse breath sounds bilaterally with rhonchi at the right base, no wheezing) Cardiovascular: other (S1-S2 heard), regular rate and rhythm Gastrointestinal: bowel sounds, non-tender, other (No guarding), soft Extremities: edema (Trace), other (No cyanosis) Results Result Diagram: 11/17/16 0710 11/17/16 0710 Results 24 hrs Laboratory Tests Test 11/17/16 07:10 Activated Partial Thromboplast Time 38.7 H Alanine Aminotransferase (ALT/SGPT) 23 Albumin 3.8 Albumin/Globulin Ratio 0.90 Alkaline Phosphatase 102 Anion Gap 16 Aspartate Amino Transf (AST/SGOT) 24 Basophils # 0.0 Basophils % 0.1 Blood Urea Nitrogen 37 #H Calcium Level 9.5 Carbon Dioxide Level 33 H Chloride Level 97 Creatinine 1.26 H Direct Bilirubin 0.00 Eosinophils # 0.0 Eosinophils % 0.0 Globulin 4.20 H Glucose Level 201 Hematocrit 42.3 Hemoglobin 13.3 L INR International Normalized Ratio 1.03 Indirect Bilirubin 0.3 Lymphocytes # 1.0 Lymphocytes % 8.6 L Magnesium Level 2.2 Mean Corpuscular Hemoglobin 30.8 Mean Corpuscular Hemoglobin Concent 31.4 L Mean Corpuscular Volume 97.9 Mean Platelet Volume 11.3 H Monocytes # 0.5 Monocytes % 4.5 Neutrophils # 9.7 H Neutrophils % 86.4 H Nucleated Red Blood Cells # 0.0 Nucleated Red Blood Cells % 0.0 Phosphorus Level 3.8 Platelet Count 203 # Potassium Level 4.2 Prothrombin Time 13.5 Prothrombin Time Ratio 1.1 Red Blood Count 4.32 L Red Cell Distribution Width 13.7 Sodium Level 142 Total Bilirubin 0.3 Total Protein 8.0 # White Blood Count 11.2 H Medications Medications Current Medications Atorvastatin Calcium (Lipitor) 80 mg QHS PO Last administered on 11/16/16 20:51 ; Admin Dose 80 MG; Start 11/15/16 at 22:00 Carvedilol (Coreg) 3.125 mg BID PO Last administered on 11/17/16 08:09; Admin Dose 3.125 MG; Start 11/15/16 at 22:00 Clopidogrel Bisulfate (plaVIX) 75 mg DAILY PO Last administered on 11/17/16 08: 08; Admin Dose 75 MG; Start 11/16/16 at 09:00 Hydrochlorothiazide (Hydrochlorothiazide) 25 mg DAILY PO Last administered on 08:09; Admin Dose 25 MG; Start 11/16/16 at 09:00 Losartan Potassium (Cozaar) 50 mg DAILY PO Last administered on 11/17/16 08:09 ; Admin Dose 50 MG; Start 11/16/16 at 09:00 Montelukast Sodium (Singulair) 10 mg QHS PO Last administered on 11/16/16 20:51 ; Admin Dose 10 MG; Start 11/15/16 at 22:00 Salmeterol Xinafoate/ Fluticasone (Advair 250/50 Diskus) 1 inh BID INH Last administered on 11/17/16 08:09; Admin Dose 1 INH; Start 11/15/16 at 22:30 Tamsulosin HCl (Flomax) 0.4 mg HS PO Last administered on 11/16/16 20:51; Admin Dose 0.4 MG; Start 11/15/16 at 22:00 Tiotropium [place] (Spiriva) 1 inh DAILY INH Last administered on 11/17/16 08: 08; Admin Dose 1 INH; Start 11/16/16 at 09:00 Acetaminophen 650 mg 650 mg Q6H PRN PO PAIN AND OR ELEVATED TEMP; Start at 21:30 Levofloxacin/ Dextrose (Levaquin 500mg/ D5W 100 ml (Pmx)) 100 ml @ 100 mls/hr Q24H IVPB Last administered on 11/17/16 06:13; Admin Dose 100 MLS/HR; Start 11/16/16 at 07:00 Methylprednisolone Sodium Succinate 40 mg 40 mg BID IV Last administered on 11/17 08:08; Admin Dose 40 MG; Start 11/16/16 at 10:30 Vancomycin HCl/ Sodium Chloride (Vancocin/NS) 250 ml @ 83.333 mls/ hr Q24H IVPB Last administered on 11/17/16 12:05; Admin Dose 83.333 MLS/HR; Start at 13:00 Enoxaparin Sodium (Lovenox) 30 mg DAILY SC ; Start 11/18/16 at 09:00 Miscellaneous Information (*Rx Drug Level Order Reminder*) 1 ONCE ONCE XX ; Start 11/18/16 at 12:00; Stop 11/18/16 at 12:01 Procedures Procedures ECG demonstrates sinus rhythm at 79 bpm, left ventricular hypertrophy, nonspecific STT wave abnormalities Jeevan Rosas DO Nov 17, 2016 13:22
--- NOTE | 2016-11-17 17:08 | RADRPT ---
PROCEDURE: Retroperitoneal US. CLINICAL INDICATION: Renal insufficiency TECHNIQUE: Multiple sonographic images of the kidneys and retroperitoneum were obtained. The imag es were reviewed on a PACS workstation. COMPARISON: No prior studies are available for comparison. FINDINGS: The kidneys are normal in size, contour, cortical thickness and cortical echogenicity. The right kidney measures 10.5 cm. The left kidney measures 10.4 cm. There are multiple bilateral kidney stones, the largest in the left measuring 14 mm. There is no humza dence for hydronephrosis. The urinary bladder is normal. The visualized portions of the aorta and IVC are within normal limits. RPTAT: AA IMPRESSION: Bilateral nephrolithiasis. No evidence of hydronephrosis. .Torres Moran MD, Date Time Electronically viewed and signed by .Torres Moran MD, MD on 11/17/2016 17:07 .S/
[2016-11-17 19:58] LABS: PROTEIN URINE 61.1 mg/dl (0.0-9.9); PROTEIN/CREAT RATIO 0.89 RATIO
[2016-11-17] MEDS: MONTELUKAST 10 MG TAB PO SCH (20:50)
[2016-11-17] MEDS: ATORVASTATIN 80 MG TAB PO SCH (20:50)
[2016-11-17] MEDS: TAMSULOSIN (SR) 0.4 MG CAP PO SCH (20:50)
[2016-11-17] MEDS: ZOLPIDEM 5 MG TAB PO PRN (23:47)
[2016-11-18] VITALS (12 sets, daily range): BP systolic 112–136; BP diastolic 61–89; PULSE 66–101; RESP 18–22
[2016-11-18] MEDS: LEVOFLOXACIN 500MG/D5W (PMX) 100 ML IVPB SCH (06:45)
[2016-11-18] MEDS: PANTOPRAZOLE (EC) 40 MG TAB PO SCH (06:45)
[2016-11-18] MEDS: ALBUTEROL/IPRATROPIUM (NEB) 3 ML AMP HHN SCH ×3 (07:59→23:59)
[2016-11-18 08:33] LABS: CREATININE 1.14 mg/dl (0.61-1.24)
[2016-11-18] MEDS: LOSARTAN 50 MG TAB PO SCH (09:23)
[2016-11-18] MEDS: CLOPIDOGREL 75 MG TAB PO SCH (09:23)
[2016-11-18] MEDS: HYDROCHLOROTHIAZIDE 25 MG TAB PO SCH (09:24)
[2016-11-18] MEDS: TIOTROPIUM 18 MCG CAPSULE INHA DEV INH SCH (09:24)
[2016-11-18] MEDS: SALMETEROL/FLUTICASONE 250/50 INHA INH SCH ×2 (09:24→20:21)
[2016-11-18] MEDS: METHYLPREDNISOLONE 40 MG INJ IV SCH ×2 (09:24→20:19)
[2016-11-18] MEDS: ENOXAPARIN 30 MG/0.3 ML SYG SC SCH (10:03)
--- NOTE | 2016-11-18 11:32 | PN ---
Date/Time of Note Date/Time of Note DATE: 11/18/16 TIME: 11:29 Assessment/Plan VTE Prophylaxis VTE Prophylaxis Intervention: LMWH Lines/Catheters IV [facility] Type (from [facility] Saline Lock Urinary Cath still in place: No Assessment/Plan Assessment/Plan 1. Right lower lobe community-acquired pneumonia. 2. Chronic obstructive pulmonary disease/asthma exacerbation. 3. Leukocytosis. 4. Sepsis,as evidenced by leukocytosis and tachypnea, secondary to pneumonia. possible due to bacteremia 6. History of coronary artery disease. 7. History of diabetes. 8. History of dyslipidemia. 9. History of hypertension, blood pressure within goal. 10. History of atrial fibrillation. 11. Bacteremia with blood cx growing two different organisms on 11/15/2016- follow up two sets of blood cx negative to date Plan: IV abx levaquin and IV vancomycin repeat blood cx no growth to date Cardiology and nephrology has been following lovenox for DVT prophylaxis downgrade to med/surge floor Subjective 24 Hr Interval Summary Free Text/Dictation C/o SOB, Cr improved, still c/o cough, stable Exam/Review of Systems Vital Signs Vitals Vital Signs Date Time Temp Pulse Resp B/P Pulse Ox O2 Delivery O2 Flow Rate FiO2 11/18/16 11:26 97.9 74 20 128/89 97 11/18/16 08:30 Nasal Cannula 2.0 11/16/16 16:05 21 Intake and Output 11/17/16 11/17/16 11/18/16 15:00 23:00 07:00 Intake Total 700 ml 450 ml Output Total 800 ml Balance -100 ml 450 ml Exam GENERAL: Elderly male lying in bed with no acute distress. No acute distress. Slightly sleepy, but was arousable. HEENT: No obvious head deformity. Pupils are reactive to light. CARDIOVASCULAR: Regular rate and rhythm. No extra sounds. LUNGS: He has decreased breath sounds at the bases with minimal scattered wheezing. ABDOMEN: Soft, nontender, nondistended. Positive bowel sounds. EXTREMITIES: No edema. Results Result Diagram: 11/17/16 0710 11/18/16 0705 Results 24 hrs Laboratory Tests Test 11/17/16 15:35 11/18/16 07:05 Urine Protein/Creatinine Ratio 0.89 Urine Random Creatinine 67.94 Urine Total Protein 61.1 H Blood Urea Nitrogen 40 H Creatinine 1.14 Medications Medications Current Medications Atorvastatin Calcium (Lipitor) 80 mg QHS PO Last administered on 11/17/16 20:50 ; Admin Dose 80 MG; Start 11/15/16 at 22:00 Carvedilol (Coreg) 3.125 mg BID PO Last administered on 11/18/16 09:23; Admin Dose 3.125 MG; Start 11/15/16 at 22:00 Clopidogrel Bisulfate (plaVIX) 75 mg DAILY PO Last administered on 11/18/16 09: 23; Admin Dose 75 MG; Start 11/16/16 at 09:00 Hydrochlorothiazide (Hydrochlorothiazide) 25 mg DAILY PO Last administered on 09:24; Admin Dose 25 MG; Start 11/16/16 at 09:00 Losartan Potassium (Cozaar) 50 mg DAILY PO Last administered on 11/18/16 09:23 ; Admin Dose 50 MG; Start 11/16/16 at 09:00 Montelukast Sodium (Singulair) 10 mg QHS PO Last administered on 11/17/16 20:50 ; Admin Dose 10 MG; Start 11/15/16 at 22:00 Salmeterol Xinafoate/ Fluticasone (Advair 250/50 Diskus) 1 inh BID INH Last administered on 11/18/16 09:24; Admin Dose 1 INH; Start 11/15/16 at 22:30 Tamsulosin HCl (Flomax) 0.4 mg HS PO Last administered on 11/17/16 20:50; Admin Dose 0.4 MG; Start 11/15/16 at 22:00 Tiotropium [place] (Spiriva) 1 inh DAILY INH Last administered on 11/18/16 09: 24; Admin Dose 1 INH; Start 11/16/16 at 09:00 Acetaminophen 650 mg 650 mg Q6H PRN PO PAIN AND OR ELEVATED TEMP; Start at 21:30 Levofloxacin/ Dextrose (Levaquin 500mg/ D5W 100 ml (Pmx)) 100 ml @ 100 mls/hr Q24H IVPB Last administered on 11/18/16 06:45; Admin Dose 100 MLS/HR; Start 11/16/16 at 07:00 Methylprednisolone Sodium Succinate 40 mg 40 mg BID IV Last administered on 11/18 09:24; Admin Dose 40 MG; Start 11/16/16 at 10:30 Vancomycin HCl/ Sodium Chloride (Vancocin/NS) 250 ml @ 83.333 mls/ hr Q24H IVPB Last administered on 11/17/16 12:05; Admin Dose 83.333 MLS/HR; Start at 13:00 Enoxaparin Sodium (Lovenox) 30 mg DAILY SC Last administered on 11/18/16 10:03 ; Admin Dose 30 MG; Start 11/18/16 at 09:00 Miscellaneous Information (*Rx Drug Level Order Reminder*) 1 ONCE ONCE XX ; Start 11/18/16 at 12:00; Stop 11/18/16 at 12:01 Zolpidem Tartrate (Ambien) 10 mg HS PRN PO INSOMNIA Last administered on 23:47; Admin Dose 10 MG; Start 11/17/16 at 22:30 CRUZ ABRAHAM MD Nov 18, 2016 11:32
--- NOTE | 2016-11-18 11:55 | CONS ---
Date/Time of Note Date/Time of Note DATE: 11/18/16 TIME: 11:50 Assessment/Plan Assessment/Plan Chief Complaint/Hosp Course 1. Acute renal failure. His renal function is back to normal today. He is overall much improved. 2 his renal ultrasound does show bilateral nephrolithiasis. His renal cortex is normal and there is no evidence of hydronephrosis. I will speak to him about this. I will sign off at this point and see again on request. Problems: Consultation Date/Type/Reason Admit Date/Time Nov 15, 2016 at 14:45 Initial Consult Date Type of Consultation: renal 24 HR Interval Summary Free Text/Dictation He says that he feels well today. He does not complain of any chest pain or shortness of breath. Constitutional: improved, no complaints Exam/Review of Systems Vital Signs Vitals Vital Signs Date Time Temp Pulse Resp B/P Pulse Ox O2 Delivery O2 Flow Rate FiO2 11/18/16 11:26 97.9 74 20 128/89 97 11/18/16 08:30 Nasal Cannula 2.0 11/16/16 16:05 21 Intake and Output 11/17/16 11/17/16 11/18/16 15:00 23:00 07:00 Intake Total 700 ml 450 ml Output Total 800 ml Balance -100 ml 450 ml Exam Constitutional: alert, oriented, well developed Psych: nl mood/affect, no complaints Respiratory: clear to auscultation, normal air movement Cardiovascular: regular rate and rhythm Gastrointestinal: soft Musculoskeletal: nl extremities to inspection Results Result Diagram: 11/17/16 0710 11/18/16 0705 Results 24 hrs Laboratory Tests Test 11/17/16 15:35 11/18/16 07:05 Urine Protein/Creatinine Ratio 0.89 Urine Random Creatinine 67.94 Urine Total Protein 61.1 H Blood Urea Nitrogen 40 H Creatinine 1.14 Medications Medications Current Medications Atorvastatin Calcium (Lipitor) 80 mg QHS PO Last administered on 11/17/16 20:50 ; Admin Dose 80 MG; Start 11/15/16 at 22:00 Carvedilol (Coreg) 3.125 mg BID PO Last administered on 11/18/16 09:23; Admin Dose 3.125 MG; Start 11/15/16 at 22:00 Clopidogrel Bisulfate (plaVIX) 75 mg DAILY PO Last administered on 11/18/16 09: 23; Admin Dose 75 MG; Start 11/16/16 at 09:00 Hydrochlorothiazide (Hydrochlorothiazide) 25 mg DAILY PO Last administered on 09:24; Admin Dose 25 MG; Start 11/16/16 at 09:00 Losartan Potassium (Cozaar) 50 mg DAILY PO Last administered on 11/18/16 09:23 ; Admin Dose 50 MG; Start 11/16/16 at 09:00 Montelukast Sodium (Singulair) 10 mg QHS PO Last administered on 11/17/16 20:50 ; Admin Dose 10 MG; Start 11/15/16 at 22:00 Salmeterol Xinafoate/ Fluticasone (Advair 250/50 Diskus) 1 inh BID INH Last administered on 11/18/16 09:24; Admin Dose 1 INH; Start 11/15/16 at 22:30 Tamsulosin HCl (Flomax) 0.4 mg HS PO Last administered on 11/17/16 20:50; Admin Dose 0.4 MG; Start 11/15/16 at 22:00 Tiotropium [place] (Spiriva) 1 inh DAILY INH Last administered on 11/18/16 09: 24; Admin Dose 1 INH; Start 11/16/16 at 09:00 Acetaminophen 650 mg 650 mg Q6H PRN PO PAIN AND OR ELEVATED TEMP; Start at 21:30 Levofloxacin/ Dextrose (Levaquin 500mg/ D5W 100 ml (Pmx)) 100 ml @ 100 mls/hr Q24H IVPB Last administered on 11/18/16 06:45; Admin Dose 100 MLS/HR; Start 11/16/16 at 07:00 Methylprednisolone Sodium Succinate 40 mg 40 mg BID IV Last administered on 11/18 09:24; Admin Dose 40 MG; Start 11/16/16 at 10:30 Vancomycin HCl/ Sodium Chloride (Vancocin/NS) 250 ml @ 83.333 mls/ hr Q24H IVPB Last administered on 11/17/16 12:05; Admin Dose 83.333 MLS/HR; Start at 13:00 Enoxaparin Sodium (Lovenox) 30 mg DAILY SC Last administered on 11/18/16 10:03 ; Admin Dose 30 MG; Start 11/18/16 at 09:00 Miscellaneous Information (*Rx Drug Level Order Reminder*) 1 ONCE ONCE XX ; Start 11/18/16 at 12:00; Stop 11/18/16 at 12:01 Zolpidem Tartrate (Ambien) 10 mg HS PRN PO INSOMNIA Last administered on t 23:47; Admin Dose 10 MG; Start 11/17/16 at 22:30 RADHA VALENCIA MD Nov 18, 2016 11:55
[2016-11-18] MEDS: VANCOMYCIN 1.25 GM in SOD CHLORIDE 0.9% 250 ML IVPB SCH (13:55)
--- NOTE | 2016-11-18 14:49 | CONS ---
Date/Time of Note Date/Time of Note DATE: 11/18/16 TIME: 14:45 Assessment/Plan Assessment/Plan Additional Assessment/Plan Pneumonia Mild acute decompensated systolic congestive heart failure Cardiomyopathy with ejection fraction 45% Mild mitral valve regurgitation CAD with history of CABG Acute kidney injury -Renal function improving, patient feeling better clinically. Would decrease hydrochlorothiazide to 12.5 mg daily. Continue ARB as blood pressure and renal function permits. Antibiotics as per primary team. Consultation Date/Type/Reason Admit Date/Time Nov 15, 2016 at 14:45 Initial Consult Date Type of Consultation: cv 24 HR Interval Summary Free Text/Dictation Patient feeling much better, denies chest pain, shortness of breath has improved , still with mild cough but better Exam/Review of Systems Vital Signs Vitals Vital Signs Date Time Temp Pulse Resp B/P Pulse Ox O2 Delivery O2 Flow Rate FiO2 11/18/16 12:11 73 11/18/16 11:26 97.9 20 128/89 97 11/18/16 08:30 Nasal Cannula 2.0 11/16/16 16:05 21 Intake and Output 11/17/16 11/17/16 11/18/16 14:59 22:59 06:59 Intake Total 700 ml 450 ml Output Total 800 ml Balance -100 ml 450 ml Exam No apparent distress, sitting up in bed Constitutional: alert, obese, oriented Head: normocephalic Neck: supple Respiratory: other (Coarse breath sounds bilaterally, no wheezing or rhonchi) Cardiovascular: other (S1-S2 heard), regular rate and rhythm, systolic murmur Gastrointestinal: bowel sounds, non-tender, other (No guarding), soft Extremities: edema (Trace), other (No cyanosis, venous stasis changes) Results Result Diagram: 11/17/16 0710 11/18/16 0705 Results 24 hrs Laboratory Tests Test 11/17/16 15:35 11/18/16 07:05 11/18/16 11:47 Urine Protein/Creatinine Ratio 0.89 Urine Random Creatinine 67.94 Urine Total Protein 61.1 H Blood Urea Nitrogen 40 H Creatinine 1.14 Vancomycin Level Trough 10.9 Medications Medications Current Medications Atorvastatin Calcium (Lipitor) 80 mg QHS PO Last administered on 11/17/16t 20:50 ; Admin Dose 80 MG; Start 11/15/16 at 22:00 Carvedilol (Coreg) 3.125 mg BID PO Last administered on 11/18/16 09:23; Admin Dose 3.125 MG; Start 11/15/16 at 22:00 Clopidogrel Bisulfate (plaVIX) 75 mg DAILY PO Last administered on 11/18/16 09: 23; Admin Dose 75 MG; Start 11/16/16 at 09:00 Hydrochlorothiazide (Hydrochlorothiazide) 25 mg DAILY PO Last administered on 09:24; Admin Dose 25 MG; Start 11/16/16 at 09:00 Losartan Potassium (Cozaar) 50 mg DAILY PO Last administered on 11/18/16 09:23 ; Admin Dose 50 MG; Start 11/16/16 at 09:00 Montelukast Sodium (Singulair) 10 mg QHS PO Last administered on 11/17/16 20:50 ; Admin Dose 10 MG; Start 11/15/16 at 22:00 Salmeterol Xinafoate/ Fluticasone (Advair 250/50 Diskus) 1 inh BID INH Last administered on 11/18/16 09:24; Admin Dose 1 INH; Start 11/15/16 at 22:30 Tamsulosin HCl (Flomax) 0.4 mg HS PO Last administered on 11/17/16 20:50; Admin Dose 0.4 MG; Start 11/15/16 at 22:00 Tiotropium [place] (Spiriva) 1 inh DAILY INH Last administered on 11/18/16 09: 24; Admin Dose 1 INH; Start 11/16/16 at 09:00 Acetaminophen 650 mg 650 mg Q6H PRN PO PAIN AND OR ELEVATED TEMP; Start at 21:30 Levofloxacin/ Dextrose (Levaquin 500mg/ D5W 100 ml (Pmx)) 100 ml @ 100 mls/hr Q24H IVPB Last administered on 11/18/16 06:45; Admin Dose 100 MLS/HR; Start 11/16/16 at 07:00 Methylprednisolone Sodium Succinate 40 mg 40 mg BID IV Last administered on 11/18 09:24; Admin Dose 40 MG; Start 11/16/16 at 10:30 Vancomycin HCl/ Sodium Chloride (Vancocin/NS) 250 ml @ 83.333 mls/ hr Q24H IVPB Last administered on 11/18/16 13:55; Admin Dose 83.333 MLS/HR; Start at 13:00 Enoxaparin Sodium (Lovenox) 30 mg DAILY SC Last administered on 11/18/16 10:03 ; Admin Dose 30 MG; Start 11/18/16 at 09:00 Zolpidem Tartrate (Ambien) 10 mg HS PRN PO INSOMNIA Last administered on 23:47; Admin Dose 10 MG; Start 11/17/16 at 22:30 Jeevan Rosas DO Nov 18, 2016 14:49
[2016-11-18] MEDS: MONTELUKAST 10 MG TAB PO SCH (20:19)
[2016-11-18] MEDS: TAMSULOSIN (SR) 0.4 MG CAP PO SCH (20:19)
[2016-11-18] MEDS: ATORVASTATIN 80 MG TAB PO SCH (20:19)
[2016-11-18] MEDS: ZOLPIDEM 5 MG TAB PO PRN (22:35)
[2016-11-19] VITALS (12 sets, daily range): BP systolic 119–141; BP diastolic 62–93; PULSE 63–96; RESP 16–20
[2016-11-19 06:13] LABS: ADD SCAN DIFF NO
[2016-11-19 06:25] LABS: INR 1.04; PROTIME 13.6 Sec (12.2-14.2); PT RATIO 1.1
[2016-11-19 06:26] LABS: PARTIAL THROMBOPLASTIN TIME 27.1 Sec (25.0-35.0)
[2016-11-19 06:28] LABS: HEMOGLOBIN 12.5 g/dl (14.0-18.0); MEAN CORPUSCULAR HEMOGLOBIN 30.6 pg (29.0-33.0); MEAN CORPUSCULAR HGB CONC 31.3 g/dl (32.0-37.0); MEAN PLATELET VOLUME 11.1 fl (7.4-10.4); PLATELET COUNT 170 10^3/UL (140-415); RED BLOOD COUNT 4.08 10^6/ul (4.70-6.10); RED CELL DISTRIBUTION WIDTH 13.6 % (11.5-14.5); WHITE BLOOD COUNT 7.9 10^3/ul (4.8-10.8)
[2016-11-19 06:34] LABS: POTASSIUM 4.6 mmol/L (3.5-5.1)
[2016-11-19 06:37] LABS: CREATININE 1.11 mg/dl (0.61-1.24)
[2016-11-19 06:38] LABS: CALCIUM 8.9 mg/dl (8.4-10.2)
[2016-11-19] MEDS: LEVOFLOXACIN 500MG/D5W (PMX) 100 ML IVPB SCH (06:49)
[2016-11-19] MEDS: PANTOPRAZOLE (EC) 40 MG TAB PO SCH (06:49)
[2016-11-19] MEDS: ALBUTEROL/IPRATROPIUM (NEB) 3 ML AMP HHN SCH ×3 (08:51→23:19)
[2016-11-19] MEDS: HYDROCHLOROTHIAZIDE 12.5 MG CAP PO SCH (08:59)
[2016-11-19] MEDS: CLOPIDOGREL 75 MG TAB PO SCH (09:00)
[2016-11-19] MEDS: SALMETEROL/FLUTICASONE 250/50 INHA INH SCH ×2 (09:00→20:36)
[2016-11-19] MEDS: METHYLPREDNISOLONE 40 MG INJ IV SCH (09:00)
[2016-11-19] MEDS: LOSARTAN 50 MG TAB PO SCH (09:00)
[2016-11-19] MEDS: ENOXAPARIN 30 MG/0.3 ML SYG SC SCH (09:10)
--- NOTE | 2016-11-19 09:12 | CONS ---
Date/Time of Note Date/Time of Note DATE: 11/19/16 TIME: 09:10 Assessment/Plan Assessment/Plan Chief Complaint/Hosp Course Pneumonia Mild acute decompensated systolic congestive heart failure Cardiomyopathy with ejection fraction 45% Mild mitral valve regurgitation CAD with history of CABG Acute kidney injury Problems: Additional Assessment/Plan 1) Fluid status improved 2) Continue current cardiac regimen 3) No new cardiac orders Consultation Date/Type/Reason Admit Date/Time Nov 15, 2016 at 14:45 Initial Consult Date Type of Consultation: cv 24 HR Interval Summary Free Text/Dictation no chest pain, no sob, no palpitations Detailed Summary Respiratory: no complaints Cardiovascular: no complaints Gastrointestinal: no complaints Musculoskeletal: no complaints Skin: no complaints Neurologic: no complaints Lymphatic: no complaints Exam/Review of Systems Vital Signs Vitals Vital Signs Date Time Temp Pulse Resp B/P Pulse Ox O2 Delivery O2 Flow Rate FiO2 11/19/16 08:51 85 20 97 Nasal Cannula 3.0 11/19/16 07:51 97.8 138/93 11/16/16 16:05 21 Intake and Output 11/18/16 11/18/16 11/19/16 15:00 23:00 07:00 Intake Total 1250 ml 500 ml Output Total 1200 ml Balance 1250 ml -700 ml Exam Respiratory: clear to auscultation Cardiovascular: regular rate and rhythm Gastrointestinal: soft Extremities: normal pulses Results Result Diagram: 11/19/16 0535 11/19/16 0535 Results 24 hrs Laboratory Tests Test 11/18/16 11:47 11/19/16 05:35 Vancomycin Level Trough 10.9 Activated Partial Thromboplast Time 27.1 Anion Gap 11 Blood Urea Nitrogen 43 H Calcium Level 8.9 Carbon Dioxide Level 35 H Chloride Level 97 Creatinine 1.11 Glucose Level 182 Hematocrit 40.0 L Hemoglobin 12.5 L INR International Normalized Ratio 1.04 Mean Corpuscular Hemoglobin 30.6 Mean Corpuscular Hemoglobin Concent 31.3 L Mean Corpuscular Volume 98.0 Mean Platelet Volume 11.1 H Platelet Count 170 Potassium Level 4.6 Prothrombin Time 13.6 Prothrombin Time Ratio 1.1 Red Blood Count 4.08 L Red Cell Distribution Width 13.6 Sodium Level 138 White Blood Count 7.9 # Medications Medications Current Medications Atorvastatin Calcium (Lipitor) 80 mg QHS PO Last administered on 11/18/16t 20:19 ; Admin Dose 80 MG; Start 11/15/16 at 22:00 Carvedilol (Coreg) 3.125 mg BID PO Last administered on 11/18/16 20:20; Admin Dose 3.125 MG; Start 11/15/16 at 22:00 Clopidogrel Bisulfate (plaVIX) 75 mg DAILY PO Last administered on 11/18/16 09: 23; Admin Dose 75 MG; Start 11/16/16 at 09:00 Losartan Potassium (Cozaar) 50 mg DAILY PO Last administered on 11/18/16 09:23 ; Admin Dose 50 MG; Start 11/16/16 at 09:00 Montelukast Sodium (Singulair) 10 mg QHS PO Last administered on 11/18/16 20:19 ; Admin Dose 10 MG; Start 11/15/16 at 22:00 Salmeterol Xinafoate/ Fluticasone (Advair 250/50 Diskus) 1 inh BID INH Last administered on 11/18/16 20:21; Admin Dose 1 INH; Start 11/15/16 at 22:30 Tamsulosin HCl (Flomax) 0.4 mg HS PO Last administered on 11/18/16 20:19; Admin Dose 0.4 MG; Start 11/15/16 at 22:00 Tiotropium [place] (Spiriva) 1 inh DAILY INH Last administered on 11/18/16 09: 24; Admin Dose 1 INH; Start 11/16/16 at 09:00 Acetaminophen 650 mg 650 mg Q6H PRN PO PAIN AND OR ELEVATED TEMP; Start at 21:30 Levofloxacin/ Dextrose (Levaquin 500mg/ D5W 100 ml (Pmx)) 100 ml @ 100 mls/hr Q24H IVPB Last administered on 11/19/16 06:49; Admin Dose 100 MLS/HR; Start 11/16/16 at 07:00 Methylprednisolone Sodium Succinate 40 mg 40 mg BID IV Last administered on 11/18 20:19; Admin Dose 40 MG; Start 11/16/16 at 10:30 Vancomycin HCl/ Sodium Chloride (Vancocin/NS) 250 ml @ 83.333 mls/ hr Q24H IVPB Last administered on 11/18/16 13:55; Admin Dose 83.333 MLS/HR; Start at 13:00 Enoxaparin Sodium (Lovenox) 30 mg DAILY SC Last administered on 11/18/16 10:03 ; Admin Dose 30 MG; Start 11/18/16 at 09:00 Zolpidem Tartrate (Ambien) 10 mg HS PRN PO INSOMNIA Last administered on 22:35; Admin Dose 10 MG; Start 11/17/16 at 22:30 Hydrochlorothiazide (Hydrochlorothiazide) 12.5 mg DAILY PO ; Start 11/19/16 at 09 :00 JOSE COFFEY MD Nov 19, 2016 09:12
[2016-11-19 10:29] LABS: LYMPHOCYTES # 0.6 10^3/ul (0.8-2.9); MONOCYTE # 0.3 10^3/ul (0.3-0.9)
[2016-11-19] MEDS: TIOTROPIUM 18 MCG CAPSULE INHA DEV INH SCH (11:09)
[2016-11-19] MEDS: VANCOMYCIN 1.25 GM in SOD CHLORIDE 0.9% 250 ML IVPB SCH (13:21)
[2016-11-19] MEDS ORDERED: CARV3.1260 PO (13:29)
[2016-11-19] MEDS ORDERED: HYDR12.53 PO (13:29)
[2016-11-19] MEDS ORDERED: ATOR80TA75 PO (13:29)
[2016-11-19] MEDS ORDERED: LOSA50TA6 PO (13:29)
[2016-11-19] MEDS ORDERED: PRED10TA PO (13:29)
[2016-11-19] MEDS ORDERED: LEVO500T72 PO (13:29)
--- NOTE | 2016-11-19 17:48 | PN ---
Date/Time of Note Date/Time of Note DATE: 11/19/16 TIME: 17:44 Assessment/Plan VTE Prophylaxis VTE Prophylaxis Intervention: SCD's Lines/Catheters IV [facility] Urinary Cath still in place: No Assessment/Plan Chief Complaint/Hosp Course Assessment and Plan: 1. Right lower lung lobe community acquired pneumonia. Continue antibiotics. 2. COPD with exacerbation. Still with little bronchospasm noted. Continue on bronchodilators. await for clinical improvement 4. CAD. Continue antiplatelet therapy 5. Diabetes mellitus. Noted with good glucose control. Continue with insulin regimen 6. Dyslipidemia. To be continued on statin medication 7. Essential hypertension. Will provide antihypertensives as needed 8. BPH. To be continued on Flomax Disposition and plan: He is slightly improving. Continue with breathing treatments. Monitor for clinical improvement of pneumonia and CHF. Discharge when cleared by consultants in medically stable Discussed plan of care with Dr. Kelsey Problems: Subjective 24 Hr Interval Summary Free Text/Dictation Still noted with some shortness of breath Exam/Review of Systems Vital Signs Vitals Vital Signs Date Time Temp Pulse Resp B/P Pulse Ox O2 Delivery O2 Flow Rate FiO2 11/19/16 16:14 88 20 96 Nasal Cannula 3.0 11/19/16 16:06 98.4 119/78 11/16/16 16:05 21 Intake and Output 11/18/16 11/18/16 11/19/16 15:00 23:00 07:00 Intake Total 1250 ml 500 ml Output Total 1200 ml Balance 1250 ml -700 ml Exam General: Still some reports of shortness of breath. Some dyspnea on exertion reported Eyes: Pupils equal round react to light Neck: Supple nontender, no JVD Cardiac: Regular rate. S1-S2 auscultated Pulmonary: Minimally diminished at lung bases. Noted with some rhonchi GI: Soft nontender nondistended Extremities: [No edema bilateral lower extremities] Skin: Clean dry and intact Neurologic: Alert to person place and time Results Result Diagram: 11/19/1635 11/19/16 0535 Results 24 hrs Laboratory Tests Test 11/19/16 05:35 Activated Partial Thromboplast Time 27.1 Anion Gap 11 Band Neutrophils % 1.0 Blood Urea Nitrogen 43 H Calcium Level 8.9 Carbon Dioxide Level 35 H Chloride Level 97 Creatinine 1.11 Glucose Level 182 Hematocrit 40.0 L Hemoglobin 12.5 L INR International Normalized Ratio 1.04 Lymphocytes # 0.6 L Lymphocytes % 7.0 L Mean Corpuscular Hemoglobin 30.6 Mean Corpuscular Hemoglobin Concent 31.3 L Mean Corpuscular Volume 98.0 Mean Platelet Volume 11.1 H Monocytes # 0.3 Monocytes % 4.0 Neutrophils # 7.0 Neutrophils % 88.0 H Platelet Count 170 Potassium Level 4.6 Prothrombin Time 13.6 Prothrombin Time Ratio 1.1 Red Blood Count 4.08 L Red Cell Distribution Width 13.6 Sodium Level 138 White Blood Count 7.9 # Medications Medications Current Medications Atorvastatin Calcium (Lipitor) 80 mg QHS PO Last administered on 11/18/16 20:19 ; Admin Dose 80 MG; Start 11/15/16 at 22:00 Carvedilol (Coreg) 3.125 mg BID PO Last administered on 11/19/16 09:00; Admin Dose 3.125 MG; Start 11/15/16 at 22:00 Clopidogrel Bisulfate (plaVIX) 75 mg DAILY PO Last administered on 11/19/16 09: 00; Admin Dose 75 MG; Start 11/16/16 at 09:00 Losartan Potassium (Cozaar) 50 mg DAILY PO Last administered on 11/19/16 09:00 ; Admin Dose 50 MG; Start 11/16/16 at 09:00 Montelukast Sodium (Singulair) 10 mg QHS PO Last administered on 11/18/16 20:19 ; Admin Dose 10 MG; Start 11/15/16 at 22:00 Salmeterol Xinafoate/ Fluticasone (Advair 250/50 Diskus) 1 inh BID INH Last administered on 11/19/16 09:00; Admin Dose 1 INH; Start 11/15/16 at 22:30 Tamsulosin HCl (Flomax) 0.4 mg HS PO Last administered on 11/18/16 20:19; Admin Dose 0.4 MG; Start 11/15/16 at 22:00 Tiotropium [place] (Spiriva) 1 inh DAILY INH Last administered on 11/19/16 11: 09; Admin Dose 1 INH; Start 11/16/16 at 09:00 Acetaminophen 650 mg 650 mg Q6H PRN PO PAIN AND OR ELEVATED TEMP; Start at 21:30 Levofloxacin/ Dextrose 100 ml @ 100 mls/hr Q24H IVPB Last administered on 06:49; Admin Dose 100 MLS/HR; Start 11/16/16 at 07:00 Vancomycin HCl/ Sodium Chloride (Vancocin/NS) 250 ml @ 83.333 mls/ hr Q24H IVPB Last administered on 11/19/16 13:21; Admin Dose 83.333 MLS/HR; Start at 13:00 Enoxaparin Sodium (Lovenox) 30 mg DAILY SC Last administered on 11/19/16 09:10 ; Admin Dose 30 MG; Start 11/18/16 at 09:00 Zolpidem Tartrate (Ambien) 10 mg HS PRN PO INSOMNIA Last administered on 22:35; Admin Dose 10 MG; Start 11/17/16 at 22:30 Hydrochlorothiazide (Hydrochlorothiazide) 12.5 mg DAILY PO Last administered on 11/19/16 08:59; Admin Dose 12.5 MG; Start 11/19/16 at 09:00 Prednisone (Prednisone) 20 mg BID PO ; Start 11/19/16 at 21:00 LAUREN FIGUEROA Nov 19, 2016 17:48
[2016-11-19] MEDS: predniSONE 20 MG TAB PO SCH (20:37)
[2016-11-19] MEDS: ATORVASTATIN 80 MG TAB PO SCH (20:37)
[2016-11-19] MEDS: TAMSULOSIN (SR) 0.4 MG CAP PO SCH (20:37)
[2016-11-19] MEDS: ZOLPIDEM 5 MG TAB PO PRN (20:38)
[2016-11-19] MEDS: MONTELUKAST 10 MG TAB PO SCH (20:38)
[2016-11-20] VITALS (12 sets, daily range): BP systolic 113–138; BP diastolic 57–86; PULSE 61–87; RESP 16–18
[2016-11-20] MEDS: LEVOFLOXACIN 500MG/D5W (PMX) 100 ML IVPB SCH (06:16)
[2016-11-20] MEDS: PANTOPRAZOLE (EC) 40 MG TAB PO SCH (06:16)
[2016-11-20] MEDS: ALBUTEROL/IPRATROPIUM (NEB) 3 ML AMP HHN SCH ×2 (07:48→16:23)
--- NOTE | 2016-11-20 09:12 | PDOCDIS ---
Discharge Instructions DIAGNOSIS Discharge Diagnosis: 1. Right lower lung lobe pneumonia 2. COPD with exacerbation 3. CAD CONDITION Patient Condition: Stable HOME CARE INSTRUCTIONS: Diet Instructions: Low Fat /CholesterolSpecial Diet: cardiac, carbohydrate controlled FOLLOW UP/APPOINTMENTS Appointments 1. Follow up with Dr. Mark Ryan in one week OTHER ORDERS: Other Orders: Take your medications as prescribed LAUREN FIGUEROA Nov 20, 2016 09:12
[2016-11-20] MEDS: HYDROCHLOROTHIAZIDE 12.5 MG CAP PO SCH (09:46)
[2016-11-20] MEDS: LOSARTAN 50 MG TAB PO SCH (09:47)
[2016-11-20] MEDS: predniSONE 20 MG TAB PO SCH ×2 (09:47→21:20)
[2016-11-20] MEDS: CLOPIDOGREL 75 MG TAB PO SCH (09:47)
[2016-11-20] MEDS: TIOTROPIUM 18 MCG CAPSULE INHA DEV INH SCH (09:48)
[2016-11-20] MEDS: SALMETEROL/FLUTICASONE 250/50 INHA INH SCH ×2 (09:48→21:22)
[2016-11-20] MEDS: ENOXAPARIN 30 MG/0.3 ML SYG SC SCH (09:51)
--- NOTE | 2016-11-20 10:01 | RADRPT ---
PROCEDURE: XR Chest. CLINICAL INDICATION: Shortness of breath. TECHNIQUE: Single frontal view. COMPARISON: 11/15/2016. FINDINGS: There is mild left basilar atelectasis. The lungs are otherwise clear. The heart is enlarged. There are sternal wires and mediastinal clips. Calcification is present in the aorta consistent with atherosclerosis. There is no pleural effusion. There is no pneumothorax. IMPRESSION: 1. Mild atelectasis at the left lung base. 2. Improved aeration of the right lung base. 3. Cardiomegaly and atherosclerosis. 4. Previous median sternotomy. RPTAT: QQ .Erik Juarez MD, MD Date Time Electronically viewed and signed by .Erik Juarez MD, MD on 11/20/2016 10:00 .R/
[2016-11-20] MEDS: VANCOMYCIN 1.25 GM in SOD CHLORIDE 0.9% 250 ML IVPB SCH (13:59)
--- NOTE | 2016-11-20 13:59 | CONS ---
Date/Time of Note Date/Time of Note DATE: 11/20/16 TIME: 13:57 Assessment/Plan Assessment/Plan Additional Assessment/Plan Pneumonia Mild acute decompensated systolic congestive heart failure Cardiomyopathy with ejection fraction 45% Mild mitral valve regurgitation CAD with history of CABG Acute kidney injury -Patient appears near euvolemic, continue maintenance diuretics. Blood pressure trend remains stable. DC planning with outpatient cardiology follow-up Consultation Date/Type/Reason Admit Date/Time Nov 15, 2016 at 14:45 Type of Consultation: cv 24 HR Interval Summary Free Text/Dictation Shortness of breath is resolved, still complains of mild cough but improved. Denies chest pain Exam/Review of Systems Vital Signs Vitals Vital Signs Date Time Temp Pulse Resp B/P Pulse Ox O2 Delivery O2 Flow Rate FiO2 11/20/16 12:22 71 11/20/16 11:38 98.5 18 115/73 96 11/20/16 08:00 Nasal Cannula 2.0 11/16/16 16:05 21 Intake and Output 11/19/16 11/19/16 11/20/16 15:00 23:00 07:00 Intake Total 1250 ml 500 ml Output Total 1000 ml 1200 ml Balance 250 ml -700 ml Exam No apparent distress Constitutional: alert, oriented Head: normocephalic Neck: supple Respiratory: other (Coarse breath sounds bilaterally, no wheezing) Cardiovascular: other (S1-S2.), regular rate and rhythm Gastrointestinal: bowel sounds, non-tender, other (No guarding), soft Extremities: edema (Trace), other (No cyanosis, venous stasis changes) Results Result Diagram: 11/19/16 0535 11/19/16 0535 Medications Medications Current Medications Atorvastatin Calcium (Lipitor) 80 mg QHS PO Last administered on 11/19/16 20:37 ; Admin Dose 80 MG; Start 11/15/16 at 22:00 Carvedilol (Coreg) 3.125 mg BID PO Last administered on 11/20/16 09:47; Admin Dose 3.125 MG; Start 11/15/16 at 22:00 Clopidogrel Bisulfate (plaVIX) 75 mg DAILY PO Last administered on 11/20/16 09: 47; Admin Dose 75 MG; Start 11/16/16 at 09:00 Losartan Potassium (Cozaar) 50 mg DAILY PO Last administered on 11/20/16 09:47 ; Admin Dose 50 MG; Start 11/16/16 at 09:00 Montelukast Sodium (Singulair) 10 mg QHS PO Last administered on 11/19/16 20:38 ; Admin Dose 10 MG; Start 11/15/16 at 22:00 Salmeterol Xinafoate/ Fluticasone (Advair 250/50 Diskus) 1 inh BID INH Last administered on 11/20/16 09:48; Admin Dose 1 INH; Start 11/15/16 at 22:30 Tamsulosin HCl (Flomax) 0.4 mg HS PO Last administered on 11/19/16 20:37; Admin Dose 0.4 MG; Start 11/15/16 at 22:[address] (Spiriva) 1 inh DAILY INH Last administered on 11/20/16 09: 48; Admin Dose 1 INH; Start 11/16/16 at 09:00 Acetaminophen 650 mg 650 mg Q6H PRN PO PAIN AND OR ELEVATED TEMP; Start at 21:30 Levofloxacin/ Dextrose 100 ml @ 100 mls/hr Q24H IVPB Last administered on 06:16; Admin Dose 100 MLS/HR; Start 11/16/16 at 07:00 Vancomycin HCl/ Sodium Chloride (Vancocin/NS) 250 ml @ 83.333 mls/ hr Q24H IVPB Last administered on 11/19/16 13:21; Admin Dose 83.333 MLS/HR; Start at 13:00 Enoxaparin Sodium (Lovenox) 30 mg DAILY SC Last administered on 11/20/16 09:51 ; Admin Dose 30 MG; Start 11/18/16 at 09:00 Zolpidem Tartrate (Ambien) 10 mg HS PRN PO INSOMNIA Last administered on 20:38; Admin Dose 10 MG; Start 11/17/16 at 22:30 Hydrochlorothiazide (Hydrochlorothiazide) 12.5 mg DAILY PO Last administered on 11/20/16 09:46; Admin Dose 12.5 MG; Start 11/19/16 at 09:00 Prednisone (Prednisone) 20 mg BID PO Last administered on 11/20/16 09:47; Admin Dose 20 MG; Start 3/4/17 at 21:00 Jeevan Rosas DO Nov 20, 2016 13:59
[2016-11-20] MEDS: ATORVASTATIN 80 MG TAB PO SCH (21:20)
[2016-11-20] MEDS: TAMSULOSIN (SR) 0.4 MG CAP PO SCH (21:21)
[2016-11-20] MEDS: MONTELUKAST 10 MG TAB PO SCH (21:21)
[2016-11-21] VITALS (11 sets, daily range): BP systolic 113–134; BP diastolic 58–79; PULSE 75–85; RESP 16–18
[2016-11-21] MEDS: ALBUTEROL/IPRATROPIUM (NEB) 3 ML AMP HHN SCH ×4 (00:14→23:26)
[2016-11-21] MEDS: LEVOFLOXACIN 500MG/D5W (PMX) 100 ML IVPB SCH (06:35)
[2016-11-21] MEDS: PANTOPRAZOLE (EC) 40 MG TAB PO SCH (06:35)
[2016-11-21] MEDS: CLOPIDOGREL 75 MG TAB PO SCH (08:26)
[2016-11-21] MEDS: HYDROCHLOROTHIAZIDE 12.5 MG CAP PO SCH (08:26)
[2016-11-21] MEDS: predniSONE 20 MG TAB PO SCH (08:27)
[2016-11-21] MEDS: LOSARTAN 50 MG TAB PO SCH (08:27)
[2016-11-21] MEDS: SALMETEROL/FLUTICASONE 250/50 INHA INH SCH ×2 (08:28→21:19)
[2016-11-21] MEDS: ENOXAPARIN 30 MG/0.3 ML SYG SC SCH (08:34)
[2016-11-21] MEDS: TIOTROPIUM 18 MCG CAPSULE INHA DEV INH SCH (08:37)
[2016-11-21] MEDS: VANCOMYCIN 1.25 GM in SOD CHLORIDE 0.9% 250 ML IVPB SCH (12:43)
[2016-11-21] MEDS: INSULIN ASPART [NOVOLOG] 3 ML PEN SC SCH ×5 (12:46→21:00)
[2016-11-21 12:57] LABS: Allen Test ACCEPTAB; Arterial Base Excess 5.7 mmol/L (-3.0-3); Arterial COHb 0.5 % (0.0-3.0); Arterial Fraction of Oxyhgb 94.4 % (93.0-99.0); Arterial HCO3 32.5 mmol/L (22.0-26.0); Arterial MetHb 0.3 % (0.0-1.5); Arterial Total Hemglobin 16.8 g/dl (12.0-18.0); MODE ROOM AIR
--- NOTE | 2016-11-21 13:36 | PN ---
DATE: 11/21/2016 TIME OF EVALUATION: 11:15 a.m. SUBJECTIVE DATA: Complains of cough. Remains on low-flow O2. Denies any chest pain. OBJECTIVE DATA: VITAL SIGNS: Temperature 97.7, pulse rate 77, respiratory rate 20, blood pressure 127/72, oxygen saturation 96% low-flow O2. GENERAL: This is an elderly male sitting in a chair, in mild respiratory distress. HEENT: Head normocephalic and atraumatic. Eyes: Anicteric sclerae. Conjunctivae clear. ENT: Nasal septum is midline. Oral mucosa is dry. NECK: Supple. No JVD noticed. RESPIRATORY: Bilaterally diminished breath sounds. A few fine rales heard at the bases. Minimal use of accessory muscles of respiration. CARDIAC: Regular rate and rhythm. S1 and S2 heard. ABDOMEN: Soft, nontender and nondistended. Bowel sounds positive in all 4 quadrants. GENITOURINARY: Deferred. EXTREMITIES: No cyanosis, no clubbing. Trace bilateral pedal edema. Bilateral discoloration of the lower extremities, most probably venous insufficiency. NEUROLOGIC: The patient is awake, alert and oriented. Cranial nerves are grossly intact. ASSESSMENT AND PLAN: 1. Acute respiratory failure, most probably hypoxic, secondary to congestive heart failure exacerbation. Continue supplemental oxygen. Continue inhaled bronchodilators. 2. Chronic obstructive pulmonary disease with underlying chronic obstructive pulmonary disease exacerbation. Continue tapering dose of steroids. Continue inhaled bronchodilators, including maintenance inhalers. 3. Right lower lobe pneumonia, improving. Continue antibiotics. 4. Sepsis with underlying gram-positive bacteremia and right lower lobe pneumonia. Continue antibiotics. No evidence of any septic shock. 5. Acute on chronic congestive heart failure exacerbation with systolic dysfunction. Continue diuresis. Cardiology following the patient. 6. Ischemic cardiomyopathy with ejection fraction of 45%. Continue ARBs and beta blockers. Cardiology is following. 7. Essential hypertension. Continue antihypertensives. 8. Coronary artery disease. History of coronary artery bypass graft. Continue Plavix. 9. Mild mitral valve regurgitation. Monitor. 10. Acute kidney injury, most probably secondary to hemodynamic versus others. Improved. Nephrology following. 11. Normocytic, normochromic anemia. We will monitor the hemoglobin and hematocrit closely. Etiology unclear. We will obtain an iron panel on this patient. 12. Type 2 diabetes mellitus. Newly diagnosed versus undiagnosed. We will start the patient on sliding scale insulin along with Lantus insulin and basal insulin. Hemoglobin A1c of 6.9. 13. Fluid, electrolytes and nutrition. A low cholesterol, carbohydrate- controlled diet. 14. Deep venous thrombosis prophylaxis. Subcutaneous Lovenox. 15. Gastrointestinal prophylaxis. Proton pump inhibitors. PLAN: Taper down steroids. Obtain room air ABG to evaluate for extent of hypoxia and to evaluate for any underlying CO2 retention. Obtain a CT scan of the chest to further evaluate the pneumonia that was evident on admission. Case discussed with Dr. Rashid. BRYANT RASHID MD AM/NTS Conf#: [id number] DID#: [id number] CC: RODOLFO PAREKH MD;*EndCC* MTDD
--- NOTE | 2016-11-21 13:57 | RADRPT ---
PROCEDURE: CT Chest without contrast. CLINICAL INDICATION: Cough and pneumonia. TECHNIQUE: Helical axial sections were obtained through the chest without intravenous contrast enh ancement. Coronal and sagittal reformatted images were obtained from the axial source images. Total exam DLP is 544.3 see mGy-cm. CTDIvol is 14.10 mGy. One or more of the following dose reduction techniques were used: Automated exposure control, adjustment of the mA and/or kV according to patien t size, use of iterative reconstruction technique. COMPARISON: None FINDINGS: There is mild atelectasis or scarring at the lung bases posteriorly. The lungs are otherwise clear with no other airspace or interstitial disease. There is no pulmonary nodule or mass lesion. There is no mediastinal or hilar lymphadenopathy or mass. There is no axillary, supraclavicular, or internal mammary lymphadenopathy. The thoracic aorta is not dilated. There is calcification in the aorta consistent with atherosclero sis. The heart size is normal. There are sternal wires and mediastinal clips from previous CABG. There is no pleural effusion or pericardial effusion. There is pericardial calcification. Images through the upper abdomen demonstrate normal visualized portions of the liver, spleen, and ad renals. There are mild degenerative changes of the spine. There is no fracture or lytic lesion. 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 IMPRESSION: 1. Mild atelectasis or scarring at the lung bases posteriorly. 2. Atherosclerosis. 3. Previous CABG. 4. Pericardial calcification. 5. 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 RPTAT: QQ .Erik Juarez MD, Date Time Electronically viewed and signed by .Erik Juarez MD, on 11/21/2016 13:57 .R/
[2016-11-21 15:18] LABS: IRON 105 ug/dl (35-150)
[2016-11-21 15:28] LABS: TOTAL IRON BINDING CAPACITY 283 ug/dl (241-421)
[2016-11-21] MEDS ORDERED: INSULIN GLARGINE [LANtus] 3 ML PEN SC SCH (20:00)
[2016-11-21] MEDS: ATORVASTATIN 80 MG TAB PO SCH (21:19)
[2016-11-21] MEDS: TAMSULOSIN (SR) 0.4 MG CAP PO SCH (21:19)
[2016-11-21] MEDS: MONTELUKAST 10 MG TAB PO SCH (21:19)
[2016-11-22] VITALS (10 sets, daily range): BP systolic 95–151; BP diastolic 52–68; PULSE 57–86; RESP 16–18
[2016-11-22] MEDS ORDERED: ACCUCHECK XX SCH (02:00)
[2016-11-22] MEDS: PANTOPRAZOLE (EC) 40 MG TAB PO SCH ×2 (06:42→08:27)
[2016-11-22] MEDS: LEVOFLOXACIN 500MG/D5W (PMX) 100 ML IVPB SCH (06:42)
[2016-11-22 06:51] LABS: ADD SCAN DIFF NO
[2016-11-22 07:09] LABS: POTASSIUM 3.9 mmol/L (3.5-5.1)
[2016-11-22 07:10] LABS: BASOPHILS % 0.1 % (0.0-2.0); EOSINOPHILS % 0.2 % (0.0-7.0); HEMOGLOBIN 12.5 g/dl (14.0-18.0); LYMPHOCYTES # 1.9 10^3/ul (0.8-2.9); LYMPHOCYTES % 23.8 % (15.0-51.0); MEAN CORPUSCULAR HEMOGLOBIN 30.5 pg (29.0-33.0); MEAN CORPUSCULAR HGB CONC 31.3 g/dl (32.0-37.0); MEAN CORPUSCULAR VOLUME 97.6 fl (82.0-101.0); MEAN PLATELET VOLUME 11.4 fl (7.4-10.4); MONOCYTES % 11.8 % (0.0-11.0); NEUTROPHIL # 5.1 10^3/ul (1.6-7.5); NEUTROPHILS % 63.7 % (39.0-77.0); PLATELET COUNT 148 10^3/UL (140-415); RED CELL DISTRIBUTION WIDTH 13.3 % (11.5-14.5)
[2016-11-22 07:11] LABS: CREATININE 1.13 mg/dl (0.61-1.24); MAGNESIUM 2.3 mg/dl (1.7-2.5); PHOSPHORUS 2.4 mg/dl (2.5-4.9)
[2016-11-22 07:12] LABS: CALCIUM 8.5 mg/dl (8.4-10.2)
[2016-11-22] MEDS: ALBUTEROL/IPRATROPIUM (NEB) 3 ML AMP HHN SCH ×2 (07:52→16:10)
[2016-11-22] MEDS: INSULIN ASPART [NOVOLOG] 3 ML PEN SC SCH ×6 (07:55→17:35)
[2016-11-22] MEDS: CLOPIDOGREL 75 MG TAB PO SCH (08:27)
[2016-11-22] MEDS: LOSARTAN 50 MG TAB PO SCH (08:28)
[2016-11-22] MEDS: HYDROCHLOROTHIAZIDE 12.5 MG CAP PO SCH (08:28)
[2016-11-22] MEDS: TIOTROPIUM 18 MCG CAPSULE INHA DEV INH SCH (08:29)
[2016-11-22] MEDS: SALMETEROL/FLUTICASONE 250/50 INHA INH SCH (08:29)
[2016-11-22] MEDS: ENOXAPARIN 30 MG/0.3 ML SYG SC SCH (08:35)
[2016-11-22] MEDS ORDERED: predniSONE 10 MG TAB PO SCH (09:00)
[2016-11-22] MEDS ORDERED: GLUCAGON 1 MG INJ IM PRN (10:00)
[2016-11-22] MEDS ORDERED: GLUCOSE GEL 15 GRAM TUBE PO PRN ×2 (10:00)
[2016-11-22] MEDS ORDERED: DEXTROSE 50% 50 ML SYRINGE IV PRN ×2 (10:00)
[2016-11-22] MEDS ORDERED: GLUCOSE GEL 15 GRAM TUBE BUCCAL PRN (10:00)
--- NOTE | 2016-11-22 13:53 | CONS ---
Date/Time of Note Date/Time of Note DATE: 11/22/16 TIME: 13:52 Assessment/Plan Assessment/Plan Additional Assessment/Plan Pneumonia Mild acute decompensated systolic congestive heart failure Cardiomyopathy with ejection fraction 45% Mild mitral valve regurgitation CAD with history of CABG Acute kidney injury -Blood pressure on the lower end, would decrease dose of hydrochlorothiazide and losartan. Renal function remains stable. Consultation Date/Type/Reason Admit Date/Time Nov 15, 2016 at 14:45 Type of Consultation: cv 24 HR Interval Summary Free Text/Dictation Feeling better, denies shortness of breath, cough is improved Exam/Review of Systems Vital Signs Vitals Vital Signs Date Time Temp Pulse Resp B/P Pulse Ox O2 Delivery O2 Flow Rate FiO2 11/22/16 12:13 86 11/22/16 11:52 98.0 16 119/68 96 11/22/16 07:56 2.0 11/22/16 07:52 21 11/22/16 04:30 Nasal Cannula Intake and Output 11/21/16 11/21/16 11/22/16 15:00 23:00 07:00 Intake Total 1440 ml 120 ml Output Total 1000 ml 725 ml Balance 440 ml -605 ml Exam No apparent distress Constitutional: alert, obese, oriented Head: normocephalic Neck: supple Respiratory: other (Coarse breath sounds bilaterally, no wheezing) Cardiovascular: other (S1-S2 heard), regular rate and rhythm Gastrointestinal: bowel sounds, non-tender, other (No guarding), soft Extremities: edema (Trace), other (Chronic venous stasis changes) Results Result Diagram: 11/22/16 0629 11/22/16 0629 Results 24 hrs Laboratory Tests Test 11/21/16 14:05 11/21/16 17:36 11/21/16 21:21 11/22/16 06:29 Ferritin 89.9 Iron Level 105 Percent Iron Saturation 37 Total Iron Binding Capacity 283 Bedside Glucose 193 163 Anion Gap 9 Basophils # 0.0 Basophils % 0.1 Blood Urea Nitrogen 50 H Calcium Level 8.5 Carbon Dioxide Level 35 H Chloride Level 97 Creatinine 1.13 Eosinophils # 0.0 Eosinophils % 0.2 Glucose Level 109 Hematocrit 40.0 L Hemoglobin 12.5 L Lymphocytes # 1.9 Lymphocytes % 23.8 Magnesium Level 2.3 Mean Corpuscular Hemoglobin 30.5 Mean Corpuscular Hemoglobin Concent 31.3 L Mean Corpuscular Volume 97.6 Mean Platelet Volume 11.4 H Monocytes # 1.0 H Monocytes % 11.8 H Neutrophils # 5.1 Neutrophils % 63.7 Nucleated Red Blood Cells # 0.0 Nucleated Red Blood Cells % 0.0 Phosphorus Level 2.4 L Platelet Count 148 Potassium Level 3.9 Red Blood Count 4.10 L Red Cell Distribution Width 13.3 Sodium Level 137 White Blood Count 8.0 Test 11/22/16 07:41 11/22/16 12:14 11/22/16 12:24 Bedside Glucose 117 214 Vancomycin Level Trough 14.2 Medications Medications Current Medications Atorvastatin Calcium (Lipitor) 80 mg QHS PO Last administered on 11/21/16 21:19 ; Admin Dose 80 MG; Start 11/15/16 at 22:00 Carvedilol (Coreg) 3.125 mg BID PO Last administered on 11/22/16 08:28; Admin Dose 3.125 MG; Start 11/15/16 at 22:00 Clopidogrel Bisulfate (plaVIX) 75 mg DAILY PO Last administered on 11/22/16 08: 27; Admin Dose 75 MG; Start 11/16/16 at 09:00 Losartan Potassium (Cozaar) 50 mg DAILY PO Last administered on 11/22/16 08:28 ; Admin Dose 50 MG; Start 11/16/16 at 09:00 Montelukast Sodium (Singulair) 10 mg QHS PO Last administered on 11/21/16 21:19 ; Admin Dose 10 MG; Start 11/15/16 at 22:00 Salmeterol Xinafoate/ Fluticasone (Advair 250/50 Diskus) 1 inh BID INH Last administered on 11/22/16 08:29; Admin Dose 1 INH; Start 11/15/16 at 22:30 Tamsulosin HCl (Flomax) 0.4 mg HS PO Last administered on 11/21/16 21:19; Admin Dose 0.4 MG; Start 11/15/16 at 22:00 Tiotropium Sarah (Spiriva) 1 inh DAILY INH Last administered on 11/22/16 08: 29; Admin Dose 1 INH; Start 11/16/16 at 09:00 Acetaminophen 650 mg 650 mg Q6H PRN PO PAIN AND OR ELEVATED TEMP; Start at 21:30 Levofloxacin/ Dextrose 100 ml @ 100 mls/hr Q24H IVPB Last administered on 06:42; Admin Dose 100 MLS/HR; Start 11/16/16 at 07:00 Vancomycin HCl/ Sodium Chloride (Vancocin/NS) 250 ml @ 83.333 mls/ hr Q24H IVPB Last administered on 11/21/16 12:43; Admin Dose 83.333 MLS/HR; Start at 13:00 Enoxaparin Sodium (Lovenox) 30 mg DAILY SC Last administered on 11/22/16 08:35 ; Admin Dose 30 MG; Start 11/18/16 at 09:00 Zolpidem Tartrate (Ambien) 10 mg HS PRN PO INSOMNIA Last administered on 20:38; Admin Dose 10 MG; Start 11/17/16 at 22:30 Hydrochlorothiazide (Hydrochlorothiazide) 12.5 mg DAILY PO Last administered on 11/22/16 08:28; Admin Dose 12.5 MG; Start 11/19/16 at 09:00 Insulin Glargine (Lantus) 8 unit DAILY@20 SC Last administered on 11/21/16 21: 27; Admin Dose 8 UNIT; Start 11/21/16 at 20:00 Diagnostic Test (Pha) (Accucheck) 1 ea 02 XX ; Start 11/22/16 at 02:00 Prednisone (Prednisone) 10 mg DAILY PO Last administered on 11/22/16 08:27; Admin Dose 10 MG; Start 11/22/16 at 09:00 Miscellaneous Information 1 ea NOTE XX ; Start 11/22/16 at 10:00 Glucose (Glutose) 15 gm Q15M PRN PO DECREASED GLUCOSE; Start 11/22/16 at 10:00 Glucose (Glutose) 22.5 gm Q15M PRN PO DECREASED GLUCOSE; Start 11/22/16 at 10:00 Dextrose (D50w Syringe) 25 ml Q15M PRN IV DECREASED GLUCOSE; Start 11/22/16 at 10:00 Dextrose (D50w Syringe) 50 ml Q15M PRN IV DECREASED GLUCOSE; Start 11/22/16 at 10:00 Glucagon (Glucagen) 1 mg Q15M PRN IM DECREASED GLUCOSE; Start 11/22/16 at 10:00 Glucose (Glutose) 15 gm Q15M PRN BUCCAL DECREASED GLUCOSE; Start 11/22/16 at 10: 00 Jeevan Rosas DO Nov 22, 2016 13:53
[2016-11-22] MEDS: VANCOMYCIN 1.25 GM in SOD CHLORIDE 0.9% 250 ML IVPB SCH (14:21)
--- NOTE | 2016-11-22 16:51 | PN ---
Date/Time of Note Date/Time of Note LATE ENTRY DATE: 11/20/16 Assessment/Plan VTE Prophylaxis VTE Prophylaxis Intervention: LMWH Lines/Catheters IV C[facility]ter Type [facility]from [facility] [place] Assessment/Plan Chief Complaint/Hosp Course Assessment and Plan: 1. Right lower lung lobe community acquired pneumonia. Continue antibiotics. await for clinical improvement 2. COPD with exacerbation. Still with little bronchospasm noted. Continue on bronchodilators. await for clinical improvement 4. CAD. Continue antiplatelet therapy 5. Diabetes mellitus. Noted with good glucose control. Continue with insulin regimen 6. Dyslipidemia. To be continued on statin medication 7. Essential hypertension. Will provide antihypertensives as needed 8. BPH. To be continued on Flomax Disposition and plan: He is slightly improving. Continue with breathing treatments. Await for improvement of pulmonary status. d/c when medically stable Discussed plan of care with Dr. Kelsey Problems: Subjective 24 Hr Interval Summary Free Text/Dictation reports better breathing Exam/Review of Systems Vital Signs Vitals Vital Signs Date Time Temp Pulse Resp B/P Pulse Ox O2 Delivery O2 Flow Rate FiO2 11/22/16 16:15 76 11/22/16 16:10 18 93 21 11/22/16 15:34 98.5 115/59 11/22/16 07:56 2.0 11/22/16 04:30 Nasal Cannula Intake and Output 11/21/16 11/21/16 11/22/16 15:00 23:00 07:00 Intake Total 1440 ml 120 ml Output Total 1000 ml 725 ml Balance 440 ml -605 ml Exam General: Still some reports of shortness of breath but improved Eyes: Pupils equal round react to light Neck: no JVD Cardiac: Regular rate. S1-S2 auscultated still Pulmonary: Minimally diminished at lung bases. Noted with some rhonchi still GI: Soft nontender nondistended Extremities: no obvious edema BLE Skin: Clean dry and intact Neurologic: Alert to person place and time Results Result Diagram: 11/22/16 0629 11/22/16 0629 Results 24 hrs Laboratory Tests Test 11/21/16 17:36 11/21/16 21:21 11/22/16 06:29 11/22/16 07:41 Bedside Glucose 193 163 117 Anion Gap 9 Basophils # 0.0 Basophils % 0.1 Blood Urea Nitrogen 50 H Calcium Level 8.5 Carbon Dioxide Level 35 H Chloride Level 97 Creatinine 1.13 Eosinophils # 0.0 Eosinophils % 0.2 Glucose Level 109 Hematocrit 40.0 L Hemoglobin 12.5 L Lymphocytes # 1.9 Lymphocytes % 23.8 Magnesium Level 2.3 Mean Corpuscular Hemoglobin 30.5 Mean Corpuscular Hemoglobin Concent 31.3 L Mean Corpuscular Volume 97.6 Mean Platelet Volume 11.4 H Monocytes # 1.0 H Monocytes % 11.8 H Neutrophils # 5.1 Neutrophils % 63.7 Nucleated Red Blood Cells # 0.0 Nucleated Red Blood Cells % 0.0 Phosphorus Level 2.4 L Platelet Count 148 Potassium Level 3.9 Red Blood Count 4.10 L Red Cell Distribution Width 13.3 Sodium Level 137 White Blood Count 8.0 Test 11/22/16 12:14 11/22/16 12:24 Bedside Glucose 214 Vancomycin Level Trough 14.2 Medications Medications Current Medications Atorvastatin Calcium (Lipitor) 80 mg QHS PO Last administered on 11/21/16 21:19 ; Admin Dose 80 MG; Start 11/15/16 at 22:00 Carvedilol (Coreg) 3.125 mg BID PO Last administered on 11/22/16 08:28; Admin Dose 3.125 MG; Start 11/15/16 at 22:00 Clopidogrel Bisulfate (plaVIX) 75 mg DAILY PO Last administered on 11/22/16 08: 27; Admin Dose 75 MG; Start 11/16/16 at 09:00 Montelukast Sodium (Singulair) 10 mg QHS PO Last administered on 11/21/16 21:19 ; Admin Dose 10 MG; Start 11/15/16 at 22:00 Salmeterol Xinafoate/ Fluticasone (Advair 250/50 Diskus) 1 inh BID INH Last administered on 11/22/16 08:29; Admin Dose 1 INH; Start 11/15/16 at 22:30 Tamsulosin HCl (Flomax) 0.4 mg HS PO Last administered on 11/21/16 21:19; Admin Dose 0.4 MG; Start 11/15/16 at 22:00 Tiotropium [place] (Spiriva) 1 inh DAILY INH Last administered on 11/22/16 08: 29; Admin Dose 1 INH; Start 11/16/16 at 09:00 Acetaminophen 650 mg 650 mg Q6H PRN PO PAIN AND OR ELEVATED TEMP; Start at 21:30 Levofloxacin/ Dextrose 100 ml @ 100 mls/hr Q24H IVPB Last administered on 06:42; Admin Dose 100 MLS/HR; Start 11/16/16 at 07:00 Vancomycin HCl/ Sodium Chloride (Vancocin/NS) 250 ml @ 83.333 mls/ hr Q24H IVPB Last administered on 11/22/16 14:21; Admin Dose 83.333 MLS/HR; Start at 13:00 Enoxaparin Sodium (Lovenox) 30 mg DAILY SC Last administered on 11/22/16 08:35 ; Admin Dose 30 MG; Start 11/18/16 at 09:00 Zolpidem Tartrate (Ambien) 10 mg HS PRN PO INSOMNIA Last administered on 20:38; Admin Dose 10 MG; Start 11/17/16 at 22:30 Insulin Glargine (Lantus) 8 unit DAILY@20 SC Last administered on 11/21/16 21: 27; Admin Dose 8 UNIT; Start 11/21/16 at 20:00 Diagnostic Test (Pha) (Accucheck) 1 ea 02 XX ; Start 11/22/16 at 02:00 Prednisone (Prednisone) 10 mg DAILY PO Last administered on 11/22/16 08:27; Admin Dose 10 MG; Start 11/22/16 at 09:00 Miscellaneous Information 1 ea NOTE XX ; Start 11/22/16 at 10:00 Glucose (Glutose) 15 gm Q15M PRN PO DECREASED GLUCOSE; Start 11/22/16 at 10:00 Glucose (Glutose) 22.5 gm Q15M PRN PO DECREASED GLUCOSE; Start 11/22/16 at 10:00 Dextrose (D50w Syringe) 25 ml Q15M PRN IV DECREASED GLUCOSE; Start 11/22/16 at 10:00 Dextrose (D50w Syringe) 50 ml Q15M PRN IV DECREASED GLUCOSE; Start 11/22/16 at 10:00 Glucagon (Glucagen) 1 mg Q15M PRN IM DECREASED GLUCOSE; Start 11/22/16 at 10:00 Glucose (Glutose) 15 gm Q15M PRN BUCCAL DECREASED GLUCOSE; Start 11/22/16 at 10: 00 Hydrochlorothiazide (Hydrochlorothiazide) 6.25 mg DAILY PO ; Start 11/23/16 at 09 :00 Losartan Potassium (Cozaar) 25 mg DAILY PO ; Start 11/23/16 at 09:00 LAUREN FIGUEROA Nov 22, 2016 16:51
--- NOTE | 2016-11-22 20:04 | DS ---
DATE OF ADMISSION: 11/15/2016 DATE OF DISCHARGE: 11/22/2016 FINAL DIAGNOSES: 1. Acute hypoxic and hypercapnic respiratory failure secondary to congestive heart failure exacerbation and chronic obstructive pulmonary disease exacerbation. 2. Chronic obstructive pulmonary disease exacerbation. 3. Right lower lobe pneumonia. 4. Sepsis with underlying gram-positive bacteremia and right lower lobe pneumonia. 5. Acute on chronic congestive heart failure exacerbation. Systolic dysfunction. 6. Ischemic cardiomyopathy with ejection fraction of 45%. 7. Essential hypertension. 8. Coronary artery disease. Status post coronary artery bypass graft. 9. Mild mitral valve regurgitation. 10. Acute kidney injury, resolved. 11. Normocytic normochromic anemia. 12. Type 2 diabetes mellitus, newly diagnosed versus undiagnosed. CONSULTATIONS: 1. Dr. Jeevan Rosas, cardiology. 2. Dr. Fernando Ryan, cardiology. 3. Dr. Vick Driver, nephrology. HOSPITAL COURSE: This is an 86-year-old male with past medical history of essential hypertension, dyslipidemia, CAD, benign prostatic hypertrophy, and paroxysmal atrial fibrillation who came to the emergency room with chief complaint of dyspnea and cough. The patient's chest x-ray that was done in the emergency room showed right lower lobe opacity that may suggest pneumonia and aspiration with minimal bronchial wall thickening. The patient was also noticed to have leukocytosis. Provided the patient's history of present illness and the diagnostic findings, a clinical decision was made to admit the patient to inpatient setting to have him further evaluated. The patient was admitted to inpatient telemetry floor. A cardiology consult was obtained. The patient was started on empiric antibiotics. Pancultures were ordered on this patient. The patient's blood culture x2 showed alpha hemolytic streptococci and coagulase negative Staphylococcus species. The patient's sputum culture was negative. The patient's repeat blood cultures were negative. The patient was maintained on antibiotics as per sensitivities. The patient had no evidence of any septic shock. The patient's symptomatology improved with the treatment strategy. The patient was noticed to have COPD with underlying exacerbation. The patient was maintained on inhaled bronchodilators and tapering dose of steroids. The patient was noticed to have congestive heart failure. The patient's 2D echocardiogram showed ejection fraction of 45%. The patient was maintained on angiotensin 2 receptor blockers and beta blockers. Cardiology was following the patient. The patient is status post CABG with history of CAD. The patient was maintained on Plavix for the same. The patient was also noticed to have acute kidney injury during the hospital course. Hence, nephrology evaluated the patient. The patient's kidney function is back to baseline normal. The patient's acute kidney injury could have been most probably secondary to hemodynamics versus others. The patient was noticed to have normocytic normochromic anemia. The patient's H and H remained stable throughout the patient's hospital course. The patient' s iron panel did not show any evidence of any iron deficiency. The patient has type 2 diabetes mellitus, either newly diagnosed versus undiagnosed. The patient was not taking any medications specifically for diabetes at home. Hence , the patient was started on sliding scale insulin with Lantus insulin with optimal control of the patient's blood sugars. Upon discharge, the patient will be started on metformin. The patient also has underlying essential hypertension. The patient was maintained on antihypertensives. The patient's blood pressure was slightly on the lower side at some point during the patient' s hospitalization. Hence, the patient's antihypertensive dosing was adjusted by cardiology. The patient had a stable hospital course. The patient was cleared by cardiology to be discharged home. The patient denied any complaints at the time of discharge. DISCHARGE PLAN: The patient will be discharged home today. The patient was instructed to take a carbohydrate controlled, low cholesterol diet. The patient was instructed to resume activities as tolerated. He was instructed to follow up with cardiology in 2 weeks. The patient was instructed to call 911 or go to the nearest emergency room if he has any chest pain or significant shortness of breath. The patient verbalized understanding of his discharge instructions. CONDITION AT DISCHARGE: Stable. DISCHARGE MEDICATIONS 1. Losartan 25 mg p.o. daily. 2. Hydrochlorothiazide 6.25 mg p.o. daily. 3. Coreg 3.125 mg p.o. b.i.d. 4. Amoxicillin 500 mg p.o. q.8h. x10 days. 5. Rifaximin 300 mg p.o. q.8h. x10 days. 6. Metformin 500 mg p.o. with breakfast and dinner. 7. Prednisone 10 mg p.o. daily x2 days, then prednisone 5 mg p.o. daily x2 days. 8. ProAir HFA 2 puffs inhaled q.4h. p.r.n. wheezing. 9. Plavix 75 mg p.o. daily. 10. Singular 10 mg p.o. at bedtime. 11. Protonix 40 mg p.o. before breakfast. 12. Advair Diskus 250/50 one inhalation b.i.d. 13. Tamsulosin 0.4 mg p.o. at bedtime. 14. Spiriva 1 capsule inhalation daily. PERTINENT LABORATORY AND DIAGNOSTIC DATA: 1. 2-D echocardiogram. Ejection fraction of 45%. Stage I diastolic dysfunction. Trace aortic valve regurgitation. Mild mitral valve regurgitation. Moderate enlargement of left atrium. 2. Latest CBC: WBC 8.0, hemoglobin 12.5, hematocrit 40.0, platelet count 148. 3. Latest BMP: Sodium 137, potassium 3.9, chloride 97, carbon dioxide 30, anion gap 9, BUN 50, creatinine 1.13, glucose 109, calcium 8.5, phosphorus 2.4, magnesium 2.3. 4. Hemoglobin A1c 6.9. 5. Fasting lipid panel: Triglycerides 76, total cholesterol 104, LDL 48, HDL 41. 6. Blood gas that was done on room air: pH 7.392, pCO2 of 54.6, pO2 of 72.3, bicarbonate 32.5, base excess 5.7. 7. Iron panel: Iron 105, TIBC 283, iron saturation 37, ferritin 89.9. At this time, I would like to thank all the consultants for seeing the patient and providing clinical recommendations. The case and management of this patient was fully discussed with Dr. Rashid. Approximately 35 minutes was spent on coordinating the discharge on this patient. BRYANT RASHID MD AM/NTS Conf#: [id number] DID#: [id number] CC: RODOLFO PAREKH MD;*EndCC* MTDD
[2016-11-23] MEDS ORDERED: LOSARTAN 25 MG TAB PO SCH (09:00)
[2016-11-23] MEDS ORDERED: HYDROCHLOROTHIAZIDE 25 MG TAB PO SCH (09:00)
== END 2016-11-22 18:55 | disposition home health service (06) | DRG 871 ==
LOC: E/R 12:42 → TEL 14:45
PROVIDERS: ADMIT Internal Medicine; ATTEND Internal Medicine
DX: A41.89 Other specified sepsis (principal); J18.9 Pneumonia, unspecified organism; N17.9 Acute kidney failure, unspecified; I50.23 Acute on chronic systolic (congestive) heart failure; J44.0 Chronic obstructive pulmonary disease with (acute) lower respiratory infection; J96.02 Acute respiratory failure with hypercapnia; J96.01 Acute respiratory failure with hypoxia; J44.1 Chronic obstructive pulmonary disease with (acute) exacerbation; J45.901 Unspecified asthma with (acute) exacerbation; I48.0 Paroxysmal atrial fibrillation; I11.0 Hypertensive heart disease with heart failure; I25.10 Atherosclerotic heart disease of native coronary artery without angina pectoris; Z95.1 Presence of aortocoronary bypass graft; E11.9 Type 2 diabetes mellitus without complications; I10 Essential (primary) hypertension; E78.5 Hyperlipidemia, unspecified; N40.0 Benign prostatic hyperplasia without lower urinary tract symptoms; I25.5 Ischemic cardiomyopathy; D64.9 Anemia, unspecified; I08.0 Rheumatic disorders of both mitral and aortic valves; Z79.02 Long term (current) use of antithrombotics/antiplatelets; N20.0 Calculus of kidney
CPT/HCPCS: 36415; 36600; 71010; 71250; 76775; 80048; 80053; 80061; 80202; 81001; 81003; 82565; 82570; 82728; 82803; 82962; 83036; 83540; 83605; 83735; 83880; 84100; 84484; 84520; 85025; 85610; 85730; 87040; 87070; 87086; 93005; 93306; 94640; 94664; 96374; 96375; 97116; 97162; 97530; J1940; J0692; J1650; J1815; J1956; J2920; J2930; J3370; J7050; J7512